=== PATIENT | female | born 1975 | race Caucasian/White ===

== ENCOUNTER 2016-04-06 01:01 | Emergency (ER) | payer OTHER ==
[2016-04-06] VITALS (7 sets, daily range): BP systolic 118–145; BP diastolic 66–91; PULSE 80–100; RESP 16–18; TEMP 97.6–98.1; O2SAT 95–100
[~2016-04-06] VITALS: Ht 160 cm; Wt 105.0 kg
[~2016-04-06 01:01] MED LIST: ASPI81CH CHEW; BACT800T5 PO; BUPR100CR PO; CLON0.1T PO; MIRT45TA PO; PERC5TAB12 PO; STRA100C PO; VIST25CA PO
[2016-04-06] MEDS ORDERED: HALOPERIDOL LACTATE 5 MG/ML AMP IM ONE (01:15)
[2016-04-06] MEDS ORDERED: LORazepam 2 MG/ML VIAL IV ONE (01:15)
--- NOTE | 2016-04-06 01:49 | PD ---
HPI Chief Complaint: Psychiatric Symptoms Time Seen by Provider: 01:30 Travel History International Travel<30 days: No Contact w/Intl Traveler<30days: No Traveled to known affect area: No History of Present Illness HPI The patient is 41 year old female who presents to the [facility] emergency department with a history of being brought in under a Rowell act due to reportedly trying to cut herself with a knife prior to arrival. The patient reports that she did not try to harm herself. 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 The patient reports that she does have a history of ADHD, post traumatic stress disorder, and depression. She reports that she is taking her medications as prescribed. She denies any suicidal or homicidal ideations. The patient on arrival to this facility became agitated and was attempting to spit at the staff and bite and kick the staff, therefore the patient was placed in leather restraints for her and the staff's safety. The patient was also given Ativan 2 mg IM, Haldol 5 mg IM. The patient denies any recent fevers, cough, congestion, neck pain, chest pain, shortness of breath, abdominal pain, vomiting, diarrhea, urinary symptoms, or neurologic symptoms. [facility] Past Medical History Narrative Medical The patient's past medical history is significant for ovarian cancer status post resection by Dr. Fuller in 2013, history of depression, posttraumatic stress disorder, attention deficit disorder, history of prior suicide attempts, history of seasonal allergies, polysubstance abuse, degenerative disc disease with chronic back pain, obesity. Asthma: No Anxiety: Yes Depression: Yes Cancer: Yes (OVARIAN CA) Chemotherapy: No COPD: No Diminished Hearing: No Endocrine: No Genitourinary: No Hepatitis: No Hiatal Hernia: No Hypertension: Yes Immune Disorder: No Musculoskeletal: No Neurologic: No Reproductive: No Respiratory: No Immunizations Current: No Thyroid Disease: No : 4 Para: 1 Miscarriage: 3 Ovarian Cysts: Yes Dilation and Curettage (D&C): Yes Past Surgical History Narrative Surgical The patient's past surgical history is significant for left oophorectomy, appendectomy, cholecystectomy, D&C. AICD: No Appendectomy: Yes Arteriovenous Shunt: No Body Medical Devices: TITANIUM IN RIGHT WRIST Cardiac Surgery: No Cholecystectomy: Yes Ear Surgery: No Endocrine Surgery: No Eye Surgery: No Genitourinary Surgery: No Gynecologic Surgery: Yes (OVERY CANCER) Hysterectomy: Yes Insulin Pump: No Joint Replacement: No Oral Surgery: No Pacemaker: No Thoracic Surgery: No Other Surgery: Yes (D & C, LAPAROSCOPY) Social History Alcohol Use: Yes (SOCIALLY) Tobacco Use: No (NEVER) Substance Use: No Allergies-Medications (Allergen,Severity, Reaction): Coded Allergies: Cortisone (Verified Allergy, Severe, PSYCHOSIS, 04/06/16) Pork (Verified Allergy, Severe, Anaphylaxis, 04/06/16) Tuna (Verified Allergy, Severe, Anaphylaxis, 04/06/16) Tylenol (Verified Allergy, Severe, LIVER PROBLEMS, 04/06/16) PT STATES SHE CAN TAKE IN SMALL DOSE NOT HIGH- LIVER PROBLEMS. 10/28/14 - PT DENIES ANY CURRENT ISSUES WITH LIVER/TYLENOL Penicillin (Verified Allergy, Intermediate, RASH, 04/06/16) *MDRO Multi-Drug Resistant Organism (Verified Allergy, Unknown, 04/06/16) MRSA 2014 Levaquin (Verified Adverse Reaction, Mild, MUSCLE CRAMPING, 04/06/16) muscle cramping Uncoded Allergies: fish (Allergy, Severe, mouth swells up, 02/15/16) . ham (Allergy, Severe, mouth swells up, 02/15/16) .herlinda marcia Reported Meds & Prescriptions Reported Meds & Active Scripts Active Active Prescriptions or Reported Medications Unobtainable Review of Systems Except as stated in HPI: all other systems reviewed are Neg General / Constitutional: No: Fever Eyes: No: Visual changes HENT: No: Headaches Cardiovascular: No: Chest Pain or Discomfort Respiratory: No: Shortness of Breath Gastrointestinal: No: Abdominal Pain Genitourinary: No: Dysuria Musculoskeletal: No: Pain Skin: No Rash Neurologic: No: Weakness Psychiatric: Positive: Anxiety, Depression, Suicidal Ideations, Mood Disorder, No: Disorder of Thought, Substance Abuse, Homicidal Ideation Endocrine: No: Polydipsia Hematologic/Lymphatic: No: Easy Bruising Physical Exam Narrative General: The patient is a well-developed well-nourished female in no acute distress, initially agitated on arrival attempting to hit and bite the staff. Head and Neck exam: Head is normocephalic atraumatic. Eyes: Pupils are equal round and reactive to light. Nose: Midline septum with pink mucous membranes Mouth: Dentition unremarkable. Moist mucus membranes. Posterior oropharynx is not erythematous. No tonsillar hypertrophy. Uvula midline. Airway patent. Neck: No palpable lymphadenopathy. No nuchal rigidity. No thyromegaly. Cardiovascular: Sinus tachycardia in the low 100s during agitation without murmurs, gallops, or rubs. No pulse deficit to the extremities and simultaneous auscultation and palpation of her radial artery. Lungs: Clear to auscultation bilaterally. No wheezes, rhonchi, or rales. Abdomen: Soft, without tenderness to palpation in all 4 quadrants of the abdomen. No guarding, rebound, or rigidity. Normal bowel sounds are audible. Extremities: No clubbing, cyanosis, or edema. No calf tenderness on palpation. Back: No spinous process tenderness to palpation. No costovertebral angle tenderness to palpation. Neurologic Exam: Grossly nonfocal. Skin Exam: No rash noted. Intact skin that is warm and dry. Data Data Last Documented VS Vital Signs Date Time Temp Pulse Resp B/P Pulse Ox O2 Delivery O2 Flow Rate FiO2 04/06/16 03:05 81 16 136/83 98 Room Air 04/06/16 01:56 98.1 Orders Haloperidol Inj (Haldol Inj) (04/06/16 01:15) Lorazepam Inj (Ativan Inj) (04/06/16 01:15) Complete Blood Count With Diff (04/06/16 01:32) Comprehensive Metabolic Panel (04/06/16 01:32) Urinalysis - C+S If Indicated (04/06/16 01:32) Drug Screen, Random Urine (04/06/16 01:32) Ed Urine Pregnancytest Poc (04/06/16 01:32) Alcohol (Ethanol) (04/06/16 01:32) Salicylates (Aspirin) (04/06/16 01:32) Tylenol (Acetaminophen) (04/06/16 01:32) Psych Screen (04/06/16 01:32) Labs Laboratory Tests Test 04/06/16 04/06/16 01:30 02:35 White Blood Count 10.2 TH/MM3 Red Blood Count 4.29 MIL/MM3 Hemoglobin 13.0 GM/DL Hematocrit 38.3 % Mean Corpuscular Volume 89.3 FL Mean Corpuscular Hemoglobin 30.3 PG Mean Corpuscular Hemoglobin 34.0 % Concent Red Cell Distribution Width 15.3 % Platelet Count 322 TH/MM3 Mean Platelet Volume 7.1 FL Neutrophils (%) (Auto) 73.8 % Lymphocytes (%) (Auto) 19.2 % Monocytes (%) (Auto) 5.6 % Eosinophils (%) (Auto) 0.6 % Basophils (%) (Auto) 0.8 % Neutrophils # (Auto) 7.5 TH/MM3 Lymphocytes # (Auto) 2.0 TH/MM3 Monocytes # (Auto) 0.6 TH/MM3 Eosinophils # (Auto) 0.1 TH/MM3 Basophils # (Auto) 0.1 TH/MM3 CBC Comment DIFF FINAL Differential Comment Urine Color LIGHT-YELLOW Urine Turbidity CLEAR Urine pH 5.5 Urine Specific [place] 1.004 Urine Protein NEG mg/dL Urine Glucose (UA) NEG mg/dL Urine Ketones NEG mg/dL Urine Occult Blood NEG Urine Nitrite NEG Urine Bilirubin NEG Urine Urobilinogen LESS THAN 2.0 MG/DL Urine Leukocyte Esterase NEG Urine WBC LESS THAN 1 /hpf Urine Squamous Epithelial <1 /hpf Cells Urine Hyaline Casts 1 /lpf Urine Mucus FEW /lpf Microscopic Urinalysis Comment CATH-CULT NOT IND Urine Opiates Screen NEG Urine Barbiturates Screen NEG Urine Amphetamines Screen NEG Urine Benzodiazepines Screen NEG Urine Cocaine Screen POS Urine Cannabinoids Screen NEG Sodium Level 138 MEQ/L Potassium Level 4.1 MEQ/L Chloride Level 106 MEQ/L Carbon Dioxide Level 17.6 MEQ/L Anion Gap 14 MEQ/L Blood Urea Nitrogen 9 MG/DL Creatinine 0.89 MG/DL Estimat Glomerular Filtration 70 ML/MIN Rate Random Glucose 96 MG/DL Calcium Level 8.8 MG/DL Total Bilirubin 0.3 MG/DL Aspartate Amino Transf 22 U/L (AST/SGOT) Alanine Aminotransferase 24 U/L (ALT/SGPT) Alkaline Phosphatase 91 U/L Total Protein 7.8 GM/DL Albumin 3.4 GM/DL Salicylates Level LESS THAN 1.7 MG/DL Acetaminophen Level LESS THAN 2.0 MCG/ML Ethyl Alcohol Level 133 MG/DL [facility] Medical Decision Making Medical Screen Exam Complete: Yes Emergency Medical Condition: Yes Medical Record Reviewed: Yes Differential Diagnosis Substance-induced mood disorder, versus exacerbation of depression with suicidal ideations, versus malingering Narrative Course During the course of the patients emergency department visit, the patients history, examination, and differential diagnosis were reviewed with the patient. The patient had IV access obtained and blood work sent for analysis. The patient was placed on a icu registered nurse with oximetry and blood pressure monitoring. The patient's vague record was reviewed. The patient was made aware that she is Rowell acted. The patient is aware that she will be waiting medical clearance and then evaluated by the psychiatric screener, followed by the psychiatrist. The patient was provided Haldol 5 mg IM, Ativan 2 mg IM. The patients laboratory studies were reviewed and remarkable for CBC is unremarkable, CMP is remarkable for CO2 of 17.6, GFR 70, urinalysis is unremarkable, alcohol level CXXXIII, acetaminophen less than 2, salicylate less than 1.7, urine drug screen positive for cocaine. The patient has been medically cleared for evaluation by the psychiatric screener and psychiatrist under a Rowell act. Diagnosis Primary Impression: Agitation Additional Impression: Depression with suicidal ideation Scripts Unable to Obtain Active Prescriptions or Reported Meds Apurva Cross MD Apr 06, 2016 01:49
[2016-04-06 02:01] LABS: AUTOMATED NEUTROPHIL # 7.5 TH/MM3 (1.8-7.7); BASOPHIL # 0.1 TH/MM3 (0-0.2); BASOPHIL % 0.8 % (0.0-2.0); EOSINOPHIL # 0.1 TH/MM3 (0-0.4); EOSINOPHIL % 0.6 % (0.0-4.0); HEMATOCRIT 38.3 % (35.0-46.0); HEMO FLAGS DIFF FINAL; LYMPH % 19.2 % (9.0-44.0); MEAN CELL VOLUME 89.3 FL (80.0-100.0); MEAN CORPUSCULAR HEMOGLOBIN 30.3 PG (27.0-34.0); MONO % 5.6 % (0.0-8.0); NEUT % 73.8 % (16.0-70.0); PLATELET COUNT 322 TH/MM3 (150-450); RED BLOOD COUNT 4.29 MIL/MM3 (4.00-5.30); RED CELL DISTRIBUTION WIDTH 15.3 % (11.6-17.2); WHITE BLOOD COUNT 10.2 TH/MM3 (4.0-11.0)
[2016-04-06 02:11] LABS: BLOOD, URINE NEG (NEG); GLUCOSE,URINE NEG (NEG); HYALINE CAST, URINE 1 /lpf (RARE); KETONE, URINE NEG (NEG); MUCUS URINE FEW /lpf (OCC); NITRITE,URINE NEG (NEG); PH, URINE 5.5 (5.0-8.5); SQUAMOUS EPITHELIAL CELL URINE <1 /hpf (0-5); URINE COLOR LIGHT-YELLOW (YELLW/STRAW)
[2016-04-06 02:12] LABS: COMMENT (UR) CATH-CULT NOT IND; CULTURE IF INDICATED CATH CULTURE NOT IND
[2016-04-06 02:13] LABS: AMPHETAMINE, URINE NEG (NEG); BARBITURATES, URINE NEG (NEG); COCAINE, URINE POS (NEG)
[2016-04-06 03:16] LABS: ALKALINE PHOSPHATASE 91 U/L (45-117); TOTAL BILIRUBIN ADULT 0.3 MG/DL (0.2-1.0)
[2016-04-06 03:18] LABS: ALT (GPT) 24 U/L (10-53); ANION GAP 14 MEQ/L (5-15); AST (GOT) 22 U/L (15-37); BICARBONATE 17.6 MEQ/L (21.0-32.0); BLOOD UREA NITROGEN 9 MG/DL (7-18); CHLORIDE 106 MEQ/L (98-107); GLOMERULAR FILTRATION RATE 70 ML/MIN (>89); SODIUM (NA) 138 MEQ/L (136-145)
[2016-04-06 03:19] LABS: ACETAMINOPHEN LESS THAN 2.0 MCG/ML (10.0-30.0); POTASSIUM 4.1 MEQ/L (3.5-5.1)
[2016-04-06] MEDS ORDERED: STRA100C PO (14:42)
[2016-04-06] MEDS ORDERED: VIST50CA PO (14:42)
[2016-04-06] MEDS ORDERED: BUPR150CR PO (14:42)
[2016-04-06] MEDS ORDERED: CLON0.2T PO (14:43)
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
[2016-05-17] MEDS ORDERED: CHLOTAB5 PO (15:36)
[2016-05-17] MEDS ORDERED: METR500T10 PO (16:03)
[2016-06-16] MEDS ORDERED: METR500T10 PO (15:00)
[2016-06-16] MEDS ORDERED: NORT10CA PO (15:00)
== END 2016-04-06 16:10 | disposition home or self-care (01) ==
LOC: NEPC 01:01 → NEPJ 16:10
DX: R45.1 Restlessness and agitation (principal); F41.8 Other specified anxiety disorders; F43.20 Adjustment disorder, unspecified; F10.10 Alcohol abuse, uncomplicated; R45.851 Suicidal ideations; F43.10 Post-traumatic stress disorder, unspecified; F90.9 Attention-deficit hyperactivity disorder, unspecified type; F19.10 Other psychoactive substance abuse, uncomplicated; I10 Essential (primary) hypertension; Z85.42 Personal history of malignant neoplasm of other parts of uterus; Z59.0 Homelessness
CPT/HCPCS: 80053; 80307; 80329; 81001; 84703; 85025; 96372; 96374; 99284; J1630; J2060; 80320; G0480

== ENCOUNTER → 2016-06-10 | Outpatient (CLI) | payer OTHER ==
[~2016-06-10] MED LIST changes: -ASPI81CH CHEW; -BACT800T5 PO; -BUPR100CR PO; +BUPR150CR PO; +CHLOTAB5 PO; -CLON0.1T PO; +CLON0.2T PO; +METR500T10 PO; -MIRT45TA PO; +NORT10CA PO; -PERC5TAB12 PO; -VIST25CA PO; +VIST50CA PO
[2016-06-10 10:52] LABS: AUTOMATED NEUTROPHIL # 4.4 TH/MM3 (1.8-7.7); BASOPHIL # 0.1 TH/MM3 (0-0.2); BASOPHIL % 1.1 % (0.0-2.0); EOSINOPHIL # 0.1 TH/MM3 (0-0.4); EOSINOPHIL % 1.6 % (0.0-4.0); HEMATOCRIT 37.5 % (35.0-46.0); HEMO FLAGS DIFF FINAL; LYMPH % 21.2 % (9.0-44.0); LYMPHOCYTE # 1.3 TH/MM3 (1.0-4.8); MEAN CELL VOLUME 88.6 FL (80.0-100.0); MEAN CORPUSCULAR HEMOGLOBIN 31.1 PG (27.0-34.0); MEAN CORPUSCULAR HGB CONC 35.1 % (32.0-36.0); MONO % 5.6 % (0.0-8.0); NEUT % 70.5 % (16.0-70.0); PLATELET COUNT 318 TH/MM3 (150-450); RED BLOOD COUNT 4.23 MIL/MM3 (4.00-5.30); WHITE BLOOD COUNT 6.3 TH/MM3 (4.0-11.0)
[2016-06-10 11:26] LABS: ALKALINE PHOSPHATASE 84 U/L (45-117); ALT (GPT) 19 U/L (10-53); ANION GAP 10 MEQ/L (5-15); AST (GOT) 13 U/L (15-37); BICARBONATE 25.2 MEQ/L (21.0-32.0); BLOOD UREA NITROGEN 10 MG/DL (7-18); CHLORIDE 102 MEQ/L (98-107); GLOMERULAR FILTRATION RATE 65 ML/MIN (>89); GLUCOSE,FASTING 89 MG/DL (74-99); HDL CHOLESTEROL 81.6 MG/DL (40.0-60.0); LDL CHOLESTEROL 137 MG/DL (0-99); POTASSIUM 4.1 MEQ/L (3.5-5.1); SODIUM (NA) 137 MEQ/L (136-145); TOTAL BILIRUBIN ADULT 0.5 MG/DL (0.2-1.0)
== END ==
LOC: CLAB 10:22
PROVIDERS: ATTEND Family Medicine
DX: G89.29 Other chronic pain (principal); F32.9 Major depressive disorder, single episode, unspecified; F43.10 Post-traumatic stress disorder, unspecified; T74.21XA Adult sexual abuse, confirmed, initial encounter; Z85.43 Personal history of malignant neoplasm of ovary
CPT/HCPCS: 36415; 80053; 80061; 84443; 85025; 86703

== ENCOUNTER 2017-01-10 17:43 | Emergency (ER) | payer OTHER ==
[~2017-01-10] VITALS: Ht 162.6 cm; Wt 100.0 kg
[2017-01-10 17:44] VITALS: BP 141/80; PULSE 89; RESP 20; TEMP 97.9; O2SAT 97
--- NOTE | 2017-01-10 17:54 | PD ---
Physical Exam Date Seen by Provider: Jan 10, 2017 Time Seen by Provider: 17:53 Narrative 41 yo female here for bug bite to the left arm. Happened a few hours ago. Painful and itchy. No SOB. no swelling of neck. Bite to the left hand. No signs of anaphylaxis in triage at this time. Vitals are stable in triage. Awaiting bed placement. Data Data Last Documented VS Vital Signs Date Time Temp Pulse Resp B/P (MAP) Pulse Ox O2 Delivery O2 Flow Rate FiO2 01/10/17 17:44 97.9 89 20 141/80 (100) 97 Room Air Orders Orders Ed Urine Pregnancytest Poc (01/10/17 17:52) MDM Medical Record Reviewed: Yes Supervised Visit with BARRY: No Scripts No Active Prescriptions or Reported Meds Juan Soria Jan 10, 2017 17:54
[2017-01-10] MEDS ORDERED: TRIAM.1%T TOPICAL (19:21)
[2017-01-10] MEDS ORDERED: CLAR10CA3 PO (19:21)
--- NOTE | 2017-01-10 19:27 | PD ---
HPI Chief Complaint: Bite or Sting Time Seen by Provider: 19:14 Travel History International Travel<30 days: No Contact w/Intl Traveler<30days: No Traveled to known affect area: No History of Present Illness HPI 41-year-old white female presents to emergency department for evaluation of a insect bite to her left forearm. This occurred approximately 3 hours prior to arrival. She states that she has allergic reactions to insect bites. She states that this is typical of her reactions. She was waiting at the bus stop and something stung her in the left forearm. Soon after that she developed a large area of erythema, burning, itching and pain. She denies any systemic symptoms such as shortness of breath, glossal edema or difficulty swallowing. No hives. She states that she typically comes to the ER to shot and then goes home. PFSH Past Medical History Asthma: No Anxiety: Yes Depression: Yes Cancer: Yes (OVARIAN CA) Chemotherapy: No COPD: No Diminished Hearing: No Endocrine: No Genitourinary: No Hepatitis: No Hiatal Hernia: No Hypertension: Yes Immune Disorder: No Musculoskeletal: No Neurologic: No Reproductive: No Respiratory: No Immunizations Current: No Thyroid Disease: No Tetanus Vaccination: < 5 Years ?: Unknown LMP: 12/2016 : 4 Para: 1 Miscarriage: 3 Ovarian Cysts: Yes Dilation and Curettage (D&C): Yes Past Surgical History AICD: No Appendectomy: Yes Arteriovenous Shunt: No Body Medical Devices: TITANIUM IN RIGHT WRIST Cardiac Surgery: No Cholecystectomy: Yes Ear Surgery: No Endocrine Surgery: No Eye Surgery: No Genitourinary Surgery: No Gynecologic Surgery: Yes (OVERY CANCER) Hysterectomy: Yes Insulin Pump: No Joint Replacement: No Oral Surgery: No Pacemaker: No Thoracic Surgery: No Other Surgery: Yes (D & C, LAPAROSCOPY) Social History Alcohol Use: Yes (SOCIALLY) Tobacco Use: No Substance Use: Yes Allergies-Medications (Allergen,Severity, Reaction): Coded Allergies: Fish Containing Products (Unverified Allergy, Severe, Anaphylaxis, ) Pork/Porcine Containing Products (Unverified Allergy, Severe, Anaphylaxis , 01/10/17) acetaminophen (Unverified Allergy, Severe, LIVER PROBLEMS, 01/10/17) PT STATES SHE CAN TAKE IN SMALL DOSE NOT HIGH- LIVER PROBLEMS. 10/28/14 - PT DENIES ANY CURRENT ISSUES WITH LIVER/TYLENOL cortisone (Unverified Allergy, Severe, PSYCHOSIS, 01/10/17) penicillin G (Unverified Allergy, Intermediate, RASH, 01/10/17) *MDRO Multi-Drug Resistant Organism (Verified Allergy, Unknown, 01/10/17) MRSA 2013 levofloxacin (Unverified Adverse Reaction, Mild, MUSCLE CRAMPING, 01/10/17 ) muscle cramping Uncoded Allergies: fish (Allergy, Severe, mouth swells up, 02/15/16) . ham (Allergy, Severe, mouth swells up, 02/15/16) .deli ham Reported Meds & Prescriptions Reported Meds & Active Scripts Active Claritin (Loratadine) 10 Mg Cap 10 Mg PO DAILY 10 Days Triamcinolone Topical (Triamcinolone Acetonide) 0.1 % Oint 1 Applic TOPICAL TID 7 Days Review of Systems Except as stated in HPI: all other systems reviewed are Neg HENT: No: Headaches, Sore Throat Cardiovascular: No: Chest Pain or Discomfort, Palpitations Respiratory: No: Cough, Shortness of Breath, Wheezing Gastrointestinal: No: Nausea, Vomiting Physical Exam Narrative GENERAL: Well-developed, well-nourished in no acute distress. Nontoxic appearing. HEAD: Normocephalic, atraumatic. EYES: Pupils equal round and reactive. Extraocular motions intact. No scleral icterus. No injection or drainage. ENT: TMs clear without erythema. The external auditory canals clear. Nose: clear . Posterior pharynx is pink and moist. No tonsillar edema or exudate. Uvula midline. Airway patent. NECK: Trachea midline.Supple, nontender, moves head freely. No central bony tenderness or spasm. CARDIOVASCULAR: Regular rate and rhythm without murmurs, gallops, or rubs. RESPIRATORY: Clear to auscultation. Breath sounds equal bilaterally. No wheezes , rales, or rhonchi. GASTROINTESTINAL: Abdomen soft, non-tender, nondistended. No hepato-splenomegaly , or palpable masses. No guarding. EXTREMITIES: No clubbing, cyanosis, or edema. No joint tenderness, effusion, or edema noted. Patient has a large area of erythema measuring 8 x 8 cm to her proximal left volar forearm. The patient is itching her arm during my interview. This appears to be a local reaction. No signs of infection. BACK: Nontender without deformity or crepitance. No flank tenderness. Data Data Last Documented VS Vital Signs Date Time Temp Pulse Resp B/P (MAP) Pulse Ox O2 Delivery O2 Flow Rate FiO2 01/10/17 17:44 97.9 89 20 141/80 (100) 97 Room Air Orders Orders Ed Urine Pregnancytest Poc (01/10/17 17:52) Diphenhydramine Inj (Benadryl Inj) (01/10/17 19:30) Ice/Cold Pack (01/10/17 19:18) Ed Discharge Order (01/10/17 19:21) MDM Medical Decision Making Medical Screen Exam Complete: Yes Emergency Medical Condition: Yes Medical Record Reviewed: Yes Differential Diagnosis MDM: High Differential diagnoses: Abscess, folliculitis, cellulitis, lymphangitis, abrasion, contact dermatitis, allergic reaction, insect bite Narrative Course Patient's given Benadryl 50 mg IM. This insect bite local reaction Diagnosis Primary Impression: insect bite with local reaction Patient Instructions: General Instructions Additional Instructions: Rest. Elevation. Ice. 50 mg of Benadryl every 4 hours as needed. Claritin. Triamcinolone cream. Follow-up with a medical doctor in the next 3-7 days. Return to the ER if any problems. Med/Other Pt SpecificInfo: Prescription(s) given Scripts Loratadine (Claritin) 10 Mg Cap 10 MG PO DAILY for Allergy Management for 10 Days, #10 CAP 0 Refills Prov: Mukesh Mckinney MD 01/10/17 Triamcinolone Topical (Triamcinolone Topical) 0.1 % Oint 1 APPLIC TOPICAL TID for Inflammation for 7 Days, GM 0 Refills Prov: Mukesh Mckinney MD 01/10/17 Disposition: 01 DISCHARGE HOME Condition: Stable Robby Zhu Jan 10, 2017 19:27
[2017-01-10] MEDS ORDERED: diphenhydrAMINE HCL 50 MG/ML VIAL IM ONE (19:30)
== END 2017-01-10 19:39 | disposition home or self-care (01) ==
LOC: NEPK 17:43
DX: S50.862A Insect bite (nonvenomous) of left forearm, initial encounter (principal); I10 Essential (primary) hypertension; Z86.59 Personal history of other mental and behavioral disorders; Z85.43 Personal history of malignant neoplasm of ovary; W57.XXXA Bitten or stung by nonvenomous insect and other nonvenomous arthropods, initial encounter; Y92.521 Bus station as the place of occurrence of the external cause
CPT/HCPCS: 84703; 96372; 99284; J1200

== ENCOUNTER 2017-02-05 00:52 | Emergency (ER) | payer SELFPAY ==
[~2017-02-05] VITALS: Ht 162.6 cm; Wt 100.0 kg
[~2017-02-05 00:52] MED LIST changes: -BUPR150CR PO; -CHLOTAB5 PO; +CLAR10CA3 PO; -CLON0.2T PO; -METR500T10 PO; -NORT10CA PO; -STRA100C PO; +TRIAM.1%T TOPICAL; -VIST50CA PO
[2017-02-05 00:53] VITALS: BP 180/103; PULSE 82; RESP 16; TEMP 97.6; O2SAT 98
[2017-02-05] MEDS ORDERED: ALUMINUM/MAGNESIUM/SIMETH 30 ML CUP PO ONE (02:15)
[2017-02-05] MEDS ORDERED: LIDOCAINE VISCOUS 2% SOLN 15 ML UDC SWISH-SWAL ONE (02:15)
[2017-02-05 02:43] LABS: BACTERIA, URINE RARE /hpf; BLOOD, URINE NEG (NEG); COMMENT (UR) CULT NOT INDICATED; CULTURE IF INDICATED CULT NOT INDICATED; GLUCOSE,URINE NEG (NEG); KETONE, URINE NEG (NEG); NITRITE,URINE NEG (NEG); PH, URINE 5.5 (5.0-8.5); SQUAMOUS EPITHELIAL CELL URINE <1 /hpf (0-5); URINE COLOR LIGHT-YELLOW (YELLW/STRAW)
[2017-02-05] MEDS ORDERED: KETOROLAC TROMETHAMINE 60 MG/2 ML (IM) VIAL IM ONE (04:30)
--- NOTE | 2017-02-05 04:47 | PD ---
HPI Chief Complaint: Flank/Kidney Pain Time Seen by Provider: 01:46 Travel History International Travel<30 days: No Contact w/Intl Traveler<30days: No Traveled to known affect area: No History of Present Illness HPI pt has RUQ pain and it started in the night comes to the ER in early AM monday night , pt has had her GB out an d appendix out and ovarian CA removal of left ovary PFSH Past Medical History Asthma: No Anxiety: Yes Depression: Yes Cancer: Yes (OVARIAN CA) Chemotherapy: No COPD: No Diminished Hearing: No Endocrine: No Genitourinary: No Hepatitis: No Hiatal Hernia: No Hypertension: Yes Immune Disorder: No Musculoskeletal: No Neurologic: No Reproductive: No Respiratory: No Immunizations Current: No Thyroid Disease: No ?: Not LMP: 01/24/17 : 4 Para: 1 Miscarriage: 3 Ovarian Cysts: Yes Dilation and Curettage (D&C): Yes Past Surgical History AICD: No Appendectomy: Yes Arteriovenous Shunt: No Body Medical Devices: TITANIUM IN RIGHT WRIST Cardiac Surgery: No Cholecystectomy: Yes Ear Surgery: No Endocrine Surgery: No Eye Surgery: No Genitourinary Surgery: No Gynecologic Surgery: Yes (OVERY CANCER) Hysterectomy: Yes Insulin Pump: No Joint Replacement: No Oral Surgery: No Pacemaker: No Thoracic Surgery: No Other Surgery: Yes (D & C, LAPAROSCOPY) Social History Alcohol Use: Yes (SOCIALLY) Tobacco Use: No Substance Use: No Allergies-Medications (Allergen,Severity, Reaction): Coded Allergies: Fish Containing Products (Unverified Allergy, Severe, Anaphylaxis, ) Pork/Porcine Containing Products (Unverified Allergy, Severe, Anaphylaxis , 01/10/17) acetaminophen (Unverified Allergy, Severe, LIVER PROBLEMS, 01/10/17) PT STATES SHE CAN TAKE IN SMALL DOSE NOT HIGH- LIVER PROBLEMS. 10/28/14 - PT DENIES ANY CURRENT ISSUES WITH LIVER/TYLENOL cortisone (Unverified Allergy, Severe, PSYCHOSIS, 01/10/17) penicillin G (Unverified Allergy, Intermediate, RASH, 01/10/17) *MDRO Multi-Drug Resistant Organism (Verified Allergy, Unknown, 01/10/17) MRSA 2014 levofloxacin (Unverified Adverse Reaction, Mild, MUSCLE CRAMPING, 01/10/17 ) muscle cramping Uncoded Allergies: fish (Allergy, Severe, mouth swells up, 02/15/16) . ham (Allergy, Severe, mouth swells up, 02/15/16) .herlinda kennedy Reported Meds & Prescriptions Reported Meds & Active Scripts Active Zofran Odt (Ondansetron Odt) 4 Mg Tab 4 Mg SL Q8HR PRN Protonix (Pantoprazole Sodium) 40 Mg Tab 40 Mg PO DAILY Claritin (Loratadine) 10 Mg Cap 10 Mg PO DAILY 10 Days Triamcinolone Topical (Triamcinolone Acetonide) 0.1 % Oint 1 Applic TOPICAL TID 7 Days Physical Exam Narrative GENERAL: non toxic Aox3 SKIN: Warm and dry. HEAD: Atraumatic. Normocephalic. EYES: Pupils equal and round. No scleral icterus. No injection or drainage. ENT: No nasal bleeding or discharge. Mucous membranes pink and moist. NECK: Trachea midline. No JVD. CARDIOVASCULAR: Regular rate and rhythm. RESPIRATORY: No accessory muscle use. Clear to auscultation. Breath sounds equal bilaterally. GASTROINTESTINAL: Abdomen soft, RUQ tenderness nondistended. Hepatic and splenic margins not palpable. mildly obese MUSCULOSKELETAL: Extremities without clubbing, cyanosis, or edema. No obvious deformities. NEUROLOGICAL: Awake and alert. No obvious cranial nerve deficits. Motor grossly within normal limits. Five out of 5 muscle strength in the arms and legs. Normal speech. PSYCHIATRIC: Appropriate mood and affect; insight and judgment normal. Data Data Last Documented VS Vital Signs Date Time Temp Pulse Resp B/P (MAP) Pulse Ox O2 Delivery O2 Flow Rate FiO2 02/05/17 00:53 97.6 82 16 180/103 (128) 98 Room Air Orders Orders Urinalysis - C+S If Indicated (02/05/17 00:59) Lidocaine 2% Viscous (Xylocaine 2% Visco (02/05/17 02:15) Al-Mag Hy-Si 40-40-4 Mg/Ml Liq (Mag-Al P (02/05/17 02:15) Ketorolac Inj (Toradol Inj) (02/05/17 04:30) Ed Discharge Order (02/05/17 06:24) Labs Laboratory Tests Test 02/05/17 02:00 Urine Color LIGHT-YELLOW Urine Turbidity CLEAR Urine pH 5.5 Urine Specific [place] 1.011 Urine Protein NEG mg/dL Urine Glucose (UA) NEG mg/dL Urine Ketones NEG mg/dL Urine Occult Blood NEG Urine Nitrite NEG Urine Bilirubin NEG Urine Urobilinogen LESS THAN 2.0 MG/DL Urine Leukocyte Esterase NEG Urine WBC LESS THAN 1 /hpf Urine Squamous Epithelial Cells <1 /hpf Urine Bacteria RARE /hpf Microscopic Urinalysis Comment CULT NOT INDICATED MDM Medical Decision Making Medical Screen Exam Complete: Yes Emergency Medical Condition: Yes Differential Diagnosis gastritis vs retained Gallstone vs abdo pain NOS Narrative Course GI cocktail effected pain reduced then toradol and slept without pain , 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 no emergency further eval needed at this time has no Aappendix no gallbladder both surgically removed Diagnosis Primary Impression: Abdominal pain, unspecified site Patient Instructions: Abdominal Pain (ED), General Instructions Scripts Ondansetron Odt (Zofran Odt) 4 Mg Tab 4 MG SL Q8HR Y for Nausea/Vomiting, #10 TAB 0 Refills Prov: Wade Marina MD 02/05/17 Pantoprazole (Protonix) 40 Mg Tab 40 MG PO DAILY for Reflux, #30 TAB 0 Refills Prov: Wade Marina MD 02/05/17 Disposition: 01 DISCHARGE HOME Condition: Good Wade Marina MD Feb 05, 2017 04:47
[2017-02-05] MEDS ORDERED: PROT40TA PO (06:32)
[2017-02-05] MEDS ORDERED: ZOFR4TAB3 SL (06:32)
== END 2017-02-05 07:02 | disposition home or self-care (01) ==
LOC: NEPC 00:52
DX: R10.11 Right upper quadrant pain (principal); F41.9 Anxiety disorder, unspecified; F32.9 Major depressive disorder, single episode, unspecified; I10 Essential (primary) hypertension; Z79.899 Other long term (current) drug therapy
CPT/HCPCS: 81001; 96372; 99284; J1885

== ENCOUNTER 2017-02-13 05:00 | Emergency (ER) | payer SELFPAY ==
[~2017-02-13] VITALS: Ht 162.6 cm; Wt 105.0 kg
[~2017-02-13 05:00] MED LIST changes: +PROT40TA PO; +ZOFR4TAB3 SL
[2017-02-13 05:03] VITALS: BP 125/73; PULSE 94; RESP 16; TEMP 97.6; O2SAT 99
--- NOTE | 2017-02-13 05:25 | PD ---
HPI Chief Complaint: Hip Injury Time Seen by Provider: 05:12 Travel History International Travel<30 days: No Contact w/Intl Traveler<30days: No Traveled to known affect area: No History of Present Illness HPI Patient comes in with multiple complaints. Patient states over the past 2 days she has been having right knee pain over the medial aspect that is burning like in nature without radiation. Patient denies any known injury. Pain is worse with walking and certain movement. Patient denies anything making it better patient also has concerns over left low back pain radiates all the way down to her foot. Patient denies any injury, loss change in bowel or bladder, fevers, IV drug use, or trauma. Patient denies anything like this in the past. Denies anything making it better or worse. Patient reports this has been going on for approximately a week. Patient denies doing anything for this prior to coming to the emergency department. PFSH Past Medical History Asthma: No Anxiety: Yes Depression: Yes Cancer: Yes (OVARIAN CA) Chemotherapy: No COPD: No Diminished Hearing: No Endocrine: No Genitourinary: No Hepatitis: No Hiatal Hernia: No Hypertension: Yes Immune Disorder: No Musculoskeletal: No Neurologic: No Reproductive: No Respiratory: No Immunizations Current: No Thyroid Disease: No Tetanus Vaccination: < 5 Years Influenza Vaccination: No ?: Not LMP: 02/01/2017 : 4 Para: 1 Miscarriage: 3 Ovarian Cysts: Yes Dilation and Curettage (D&C): Yes Past Surgical History AICD: No Appendectomy: Yes Arteriovenous Shunt: No Body Medical Devices: TITANIUM IN RIGHT WRIST Cardiac Surgery: No Cholecystectomy: Yes Ear Surgery: No Endocrine Surgery: No Eye Surgery: No Genitourinary Surgery: No Gynecologic Surgery: Yes (OVERY CANCER) Hysterectomy: Yes Insulin Pump: No Joint Replacement: No Oral Surgery: No Pacemaker: No Thoracic Surgery: No Other Surgery: Yes (D & C, LAPAROSCOPY) Social History Alcohol Use: Yes (SOCIALLY) Tobacco Use: No Substance Use: No Allergies-Medications (Allergen,Severity, Reaction): Coded Allergies: Fish Containing Products (Unverified Allergy, Severe, Anaphylaxis, ) Pork/Porcine Containing Products (Unverified Allergy, Severe, Anaphylaxis , 02/13/17) acetaminophen (Unverified Allergy, Severe, LIVER PROBLEMS, 02/13/17) PT STATES SHE CAN TAKE IN SMALL DOSE NOT HIGH- LIVER PROBLEMS. 10/28/14 - PT DENIES ANY CURRENT ISSUES WITH LIVER/TYLENOL cortisone (Unverified Allergy, Severe, PSYCHOSIS, 02/13/17) penicillin G (Unverified Allergy, Intermediate, RASH, 02/13/17) *MDRO Multi-Drug Resistant Organism (Verified Allergy, Unknown, 02/13/17) MRSA 2013 levofloxacin (Unverified Adverse Reaction, Mild, MUSCLE CRAMPING, 02/13/17 ) muscle cramping Uncoded Allergies: fish (Allergy, Severe, mouth swells up, 02/15/16) . ham (Allergy, Severe, mouth swells up, 02/15/16) .deli ham Reported Meds & Prescriptions Reported Meds & Active Scripts Active Diclofenac Sodium DR (Diclofenac Sodium) 75 Mg Tabdr 75 Mg PO Q12HR PRN Zofran Odt (Ondansetron Odt) 4 Mg Tab 4 Mg SL Q8HR PRN Protonix (Pantoprazole Sodium) 40 Mg Tab 40 Mg PO DAILY Claritin (Loratadine) 10 Mg Cap 10 Mg PO DAILY 10 Days Triamcinolone Topical (Triamcinolone Acetonide) 0.1 % Oint 1 Applic TOPICAL TID 7 Days Review of Systems Except as stated in HPI: all other systems reviewed are Neg Physical Exam Narrative GENERAL: Well-developed, overly nourished, in no acute distress, and non-ill appearing. SKIN: Focused skin assessment warm and dry. HEAD: Atraumatic. Normocephalic. EYES: Pupils equal and round. EOMI. No scleral icterus. No injection or drainage. ENT: No nasal bleeding or discharge. Mucous membranes pink and moist. NECK: Trachea midline. Supple. No nuclear rigidity. RESPIRATORY: No accessory muscle use. No respiratory distress. MUSCULOSKELETAL: No obvious deformities. No clubbing. No cyanosis. No edema. Full range of motion. Hip: FROM and equal BL with passive flexion, extension, Abduction, Adduction, and internal/external rotation. Pulses equal BL distal to injury. Capillary refill less than 2 seconds distal to injury and equal BL. FROM distal to injury and equal BL. Strength distal to injury equal BL. NV intact distal to injury and equal BL. Plantar flexion and dorsal flexion equal BL. Dorsal pulses equal BL. Sensation equal BL 1st web space. Knee: Negative patellar apprehension, varus and valgus maneuvers, anterior draw test, and Chris test. Pulses equal BL distal to injury. Capillary refill less than 2 seconds distal to injury and equal BL. FROM distal to injury and equal BL. Strength distal to injury equal BL. NV intact distal to injury. Dorsal pulses equal BL. Sensation equal BL 1st web space. There is no tenderness or crepitus throughout the lumbar spine midline. There is no paravertebral tenderness. NEUROLOGICAL: Awake and alert. No obvious cranial nerve deficits. Motor grossly within normal limits. Normal speech. PSYCHIATRIC: Appropriate mood and affect; insight and judgment normal. Data Data Last Documented VS Vital Signs Date Time Temp Pulse Resp B/P (MAP) Pulse Ox O2 Delivery O2 Flow Rate FiO2 02/13/17 05:27 02/13/17 05:03 97.6 94 16 99 Orders Orders Ketorolac Inj (Toradol Inj) (02/13/17 05:30) Splint Or Brace Apply/Monitor (02/13/17 05:18) Ed Discharge Order (02/13/17 05:25) Diphenhydramine (Benadryl) (02/13/17 06:00) Famotidine (Pepcid) (02/13/17 06:00) MDM Medical Decision Making Medical Screen Exam Complete: Yes Emergency Medical Condition: Yes Differential Diagnosis Fracture, strain, sciatica, dislocation, other Narrative Course Prior to discharge patient began complaining of itching of right upper extremity. Patient has had Toradol in the past with no allergic reactions. Toradol injection was given thigh and not the upper extremity. It appears the Patient is intentionally scratching at her skin causing red lopez. Does not appear consistent with hives or allergic reaction. There is no respiratory distress. We'll give patient a dose of by mouth Benadryl and by mouth Pepcid will monitor and then discharge. There is no clinical evidence for fracture. There is no clinical evidence to suspect bony injury by exam. No obvious ligamental injury or internal derangement is noted at this time. The distal extremity appears neurovascularly intact, without evidence of neurovascular injury nor compartment syndrome. Tendon exam also was intact. The effected limb was splinted. The patient was discharged on pain medication and given warnings for vascular compromise. The patient is to follow up with Orthopedics. The patient agrees with plan The patient presented also complaining of back pain with radiation down leg. There was no history of recent fall or trauma. There was no evidence to support genitourinary etiology. There is also no evidence to suggest vascular pathology such as AAA dissection. No fevers or other evidence to suspect infectious processes, abscess, osteomyelitis etc. The patients neurological exam is normal with normal motor and sensory. There is no saddle paresthesias reported and no bowel or bladder incontinence or retention. I suspect the pain is mechanical in nature with sciatica. Clinical suspicion, plan of care and management was discussed with the patient. The patient was instructed to follow up with their health care provider. The patient was also instructed to return if the pain worsened, changed, or developed weakness or bowel or bladder trouble. The patient agreed with plan. Patient in no obvious distress upon re-evaluation. Patient was asked if they wanted to speak to my attending, which the patient did not wish to do at this time. Any questions/concerns in reference to patient diagnosis/condition discussed and clarified prior to patient's discharge. Reinforced sheer importance of close follow up with patient's primary physician or primary care clinic. Instructed patient to return to ED immediately, if symptoms return/ worsen. Patient showed understanding of above instructions. Further instructions and recommendations were detailed in discharge paperwork. Patient ambulated without difficulty out of ED at discharge. Diagnosis Primary Impression: Right knee pain Qualified Codes: M25.561 - Pain in right knee Additional Impression: Sciatica Qualified Codes: M54.31 - Sciatica, right side Referrals: [facility] Patient Instructions: Crutch Instructions (ED), General Instructions, Knee Pain (ED), Sciatica (ED) Additional Instructions: Follow-up with your primary care physician and/or orthopedics this week for reevaluation. Take all medication as prescribed. Wear Efren wrap as needed for comfort. Use crutches as needed for support. Apply ice to affected area 20 minutes prior as needed for pain. Return to the emergency department if symptoms get worse. Med/Other Pt SpecificInfo: Prescription(s) given Scripts Diclofenac Sodium DR (Diclofenac Sodium DR) 75 Mg Tabdr 75 MG PO Q12HR Y for PAIN SCALE 1 TO 10, #14 TAB 0 Refills Prov: Judy Loyola MD 02/13/17 Disposition: 01 DISCHARGE HOME Condition: Stable Timbo Menendez Feb 13, 2017 05:25
[2017-02-13] MEDS ORDERED: DICL75TA PO (05:26)
[2017-02-13] MEDS ORDERED: KETOROLAC TROMETHAMINE 60 MG/2 ML (IM) VIAL IM ONE (05:30)
[2017-02-13] MEDS ORDERED: diphenhydrAMINE HCL 25 MG CAP PO ONE (06:00)
[2017-02-13] MEDS ORDERED: FAMOTIDINE 20 MG TAB PO ONE (06:00)
== END 2017-02-13 06:33 | disposition home or self-care (01) ==
LOC: NEPD 05:00
DX: M25.561 Pain in right knee (principal); M54.31 Sciatica, right side; I10 Essential (primary) hypertension
CPT/HCPCS: 96372; 99284; E0113; J1885

== ENCOUNTER 2017-02-23 12:41 | Observation (INO) | payer SELFPAY ==
[~2017-02-23] VITALS: Ht 175.3 cm; Wt 90.0 kg
[~2017-02-23 12:41] MED LIST changes: +DICL75TA PO
[2017-02-23 12:43] VITALS: BP 132/73; PULSE 88; RESP 22; TEMP 97.8; O2SAT 98
[2017-02-23] MEDS ORDERED: BENA2CRE2 TOPICAL (12:56)
[2017-02-23] MEDS ORDERED: SODIUM CHLORID 0.9% 500 ML INJ 500 ML IV ONE (13:00)
--- NOTE | 2017-02-23 13:06 | PD ---
HPI Chief Complaint: Chest Pain Time Seen by Provider: 12:59 Travel History International Travel<30 days: No Contact w/Intl Traveler<30days: No Traveled to known affect area: No History of Present Illness HPI Patient is a 41-year-old female presenting to the emergency department evaluation of chest pain. Patient states the pain started a few hours prior to arrival. She reports it radiates across her anterior chest wall to her left arm. She states that she has felt dizzy and short of breath. She also reports a cough, nasal congestion, dull headache. She reports the pain in her chest as pressure like and is 6 out of 10. There are no alleviating or exacerbating factors. Patient states that she just does not feel well, she denies any nausea , vomiting, abdominal pain, fevers but feels chilled. Patient denies any significant past medical history, she denies any early family history of heart disease. She is not a smoker and does not use any drugs. PFSH Past Medical History Asthma: No Anxiety: Yes Depression: Yes Cancer: Yes (OVARIAN CA) Chemotherapy: No COPD: No Diminished Hearing: No Endocrine: No Gastrointestinal Disorders: No Genitourinary: No Hepatitis: No Hiatal Hernia: No Hypertension: No Immune Disorder: No Implanted Vascular Access Dvce: No Musculoskeletal: No Neurologic: No Reproductive: No Respiratory: No Immunizations Current: No Thyroid Disease: No ?: Not : 4 Para: 1 Miscarriage: 3 Ovarian Cysts: Yes Dilation and Curettage (D&C): Yes Past Surgical History AICD: No Appendectomy: Yes Arteriovenous Shunt: No Body Medical Devices: TITANIUM IN RIGHT WRIST Cardiac Surgery: No Cholecystectomy: Yes Ear Surgery: No Endocrine Surgery: No Eye Surgery: No Genitourinary Surgery: No Gynecologic Surgery: Yes (right oophorectomy) Insulin Pump: No Joint Replacement: No Neurologic Surgery: No Oral Surgery: No Pacemaker: No Thoracic Surgery: No Family History Family History: Negative Social History Alcohol Use: Yes (SOCIALLY) Tobacco Use: No Substance Use: No Allergies-Medications (Allergen,Severity, Reaction): Coded Allergies: Fish Containing Products (Unverified Allergy, Severe, Anaphylaxis, ) Pork/Porcine Containing Products (Unverified Allergy, Severe, Anaphylaxis , 02/13/17) cortisone (Unverified Allergy, Severe, PSYCHOSIS, 02/13/17) penicillin G (Unverified Allergy, Intermediate, RASH, 02/13/17) *MDRO Multi-Drug Resistant Organism (Verified Allergy, Unknown, 02/13/17) MRSA 2013 levofloxacin (Unverified Adverse Reaction, Mild, MUSCLE CRAMPING, 02/13/17 ) muscle cramping Uncoded Allergies: fish (Allergy, Severe, mouth swells up, 02/15/16) . ham (Allergy, Severe, mouth swells up, 02/15/16) .herlinda ham Reported Meds & Prescriptions Reported Meds & Active Scripts Active Reported Benadryl Extra Strength Topical (Diphenhydramine-Zinc Topical) 2-0.1% Cream 1 Applic TOPICAL QID PRN Review of Systems Except as stated in HPI: all other systems reviewed are Neg General / Constitutional: Positive: Chills, No: Fever HENT: Positive: Headaches, No: Lightheadedness Cardiovascular: Positive: Chest Pain or Discomfort, Dyspnea on exertion Respiratory: Positive: Cough, Shortness of Breath, Pleuritic Pain Gastrointestinal: No: Nausea, Vomiting, Abdominal Pain Genitourinary: No: Dysuria Neurologic: Positive: Dizziness, Headache, No: Weakness, Focal Abnormalities, Change in Mentation Physical Exam Narrative GENERAL: Overweight, well-developed, alert female. Resting comfortably in no acute distress. SKIN: Warm and dry. HEAD: Atraumatic. Normocephalic. EYES: Pupils equal and round. No scleral icterus. No injection or drainage. ENT: No nasal bleeding or discharge. Mucous membranes pink and moist. NECK: Trachea midline. No JVD. CARDIOVASCULAR: Regular rate and rhythm. RESPIRATORY: No accessory muscle use. Clear to auscultation. Breath sounds equal bilaterally. GASTROINTESTINAL: Abdomen soft, non-tender, nondistended. Hepatic and splenic margins not palpable. Positive bowel sounds, no rebound, no guarding. MUSCULOSKELETAL: Extremities without clubbing, cyanosis, or edema. No obvious deformities. Tenderness to palpation on anterior chest wall. NEUROLOGICAL: Awake and alert. No obvious cranial nerve deficits. Motor grossly within normal limits. Five out of 5 muscle strength in the arms and legs. Normal speech. PSYCHIATRIC: Appropriate mood and affect; insight and judgment normal. Data Data Last Documented VS Vital Signs Date Time Temp Pulse Resp B/P (MAP) Pulse Ox O2 Delivery O2 Flow Rate FiO2 02/23/17 13:49 78 115/67 (83) 122/70 (87) 02/23/17 13:38 18 99 Room Air 02/23/17 12:43 97.8 Orders Orders Electrocardiogram (02/23/17 13:00) B-Type Natriuretic Peptide (02/23/17 13:00) Ckmb (Isoenzyme) Profile (02/23/17 13:00) Complete Blood Count With Diff (02/23/17 13:00) Comprehensive Metabolic Panel (02/23/17 13:00) Magnesium (Mg) (02/23/17 13:00) Prothrombin Time / Inr (Pt) (02/23/17 13:00) Act Partial Throm Time (Ptt) (02/23/17 13:00) Troponin I (02/23/17:00) Lipase (02/23/17 13:00) Chest, Single Ap (02/23/17 13:00) Ecg Monitoring (02/23/17 13:00) Bilateral Bp Monitoring (02/23/17 13:00) Iv Access Insert/Monitor (02/23/17 13:00) Oximetry (02/23/17 13:00) Oxygen Administration (02/23/17 13:00) Sodium Chloride 0.9% Flush (Ns Flush) (02/23/17 13:00) Sodium Chlorid 0.9% 500 Ml Inj (Ns 500 M (02/23/17 13:00) Urinalysis - C+S If Indicated (02/23/17 13:00) Ed Urine Pregnancytest Poc (02/23/17 13:00) Drug Screen, Random Urine (02/23/17 13:11) Ct Brain W/O Iv Contrast(Rout) (02/23/17 ) CKMB (02/23/17 13:03) CKMB% (02/23/17 13:03) Admit Order (Ed Use Only) (02/23/17 15:15) Labs Laboratory Tests Test 02/23/17 13:03 02/23/17 13:46 White Blood Count 6.7 TH/MM3 Red Blood Count 3.81 MIL/MM3 Hemoglobin 11.7 GM/DL Hematocrit 35.2 % Mean Corpuscular Volume 92.5 FL Mean Corpuscular Hemoglobin 30.6 PG Mean Corpuscular Hemoglobin Concent 33.1 % Red Cell Distribution Width 14.7 % Platelet Count 290 TH/MM3 Mean Platelet Volume 7.3 FL Neutrophils (%) (Auto) 66.3 % Lymphocytes (%) (Auto) 21.9 % Monocytes (%) (Auto) 7.4 % Eosinophils (%) (Auto) 3.2 % Basophils (%) (Auto) 1.2 % Neutrophils # (Auto) 4.4 TH/MM3 Lymphocytes # (Auto) 1.5 TH/MM3 Monocytes # (Auto) 0.5 TH/MM3 Eosinophils # (Auto) 0.2 TH/MM3 Basophils # (Auto) 0.1 TH/MM3 CBC Comment DIFF FINAL Differential Comment Prothrombin Time 11.1 SEC Prothromb Time International Ratio 1.0 RATIO Activated Partial Thromboplast Time 26.0 SEC Blood Urea Nitrogen 6 MG/DL Creatinine 0.92 MG/DL Random Glucose 93 MG/DL Total Protein 7.8 GM/DL Albumin 3.5 GM/DL Calcium Level 8.9 MG/DL Magnesium Level 1.9 MG/DL Alkaline Phosphatase 72 U/L Aspartate Amino Transf (AST/SGOT) 25 U/L Alanine Aminotransferase (ALT/SGPT) 26 U/L Total Bilirubin 0.2 MG/DL Sodium Level 139 MEQ/L Potassium Level 3.5 MEQ/L Chloride Level 107 MEQ/L Carbon Dioxide Level 24.2 MEQ/L Anion Gap 8 MEQ/L Estimat Glomerular Filtration Rate 67 ML/MIN Total Creatine Kinase 140 U/L Creatine Kinase MB 1.2 NG/ML Troponin I LESS THAN 0.02 NG/ML B-Type Natriuretic Peptide 17 PG/ML Lipase 117 U/L Urine Color COLORLESS Urine Turbidity CLEAR Urine pH 5.0 Urine Specific [place] 1.002 Urine Protein NEG mg/dL Urine Glucose (UA) NEG mg/dL Urine Ketones NEG mg/dL Urine Occult Blood NEG Urine Nitrite NEG Urine Bilirubin NEG Urine Urobilinogen LESS THAN 2.0 MG/DL Urine Leukocyte Esterase NEG Urine RBC LESS THAN 1 /hpf Microscopic Urinalysis Comment CULT NOT INDICATED Urine Opiates Screen NEG Urine Barbiturates Screen NEG Urine Amphetamines Screen NEG Urine Benzodiazepines Screen NEG Urine Cocaine Screen POS Urine Cannabinoids Screen NEG MDM Medical Decision Making Medical Screen Exam Complete: Yes Emergency Medical Condition: Yes Interpretation(s) Last Impressions Chest X-Ray 02/23/17 1300 Signed Impressions: Service Date/Time: , February 23, 2017 13:12 - CONCLUSION: The lungs are clear. Huey Sher MD Head CT 02/23/17 0000 Signed Impressions: Service Date/Time: February 14:21 - CONCLUSION: Negative noncontrast CT brain. Huey Sher MD Laboratory Tests Test 02/23/17 13:03 02/23/17 13:46 White Blood Count 6.7 TH/MM3 Red Blood Count 3.81 MIL/MM3 Hemoglobin 11.7 GM/DL Hematocrit 35.2 % Mean Corpuscular Volume 92.5 FL Mean Corpuscular Hemoglobin 30.6 PG Mean Corpuscular Hemoglobin Concent 33.1 % Red Cell Distribution Width 14.7 % Platelet Count 290 TH/MM3 Mean Platelet Volume 7.3 FL Neutrophils (%) (Auto) 66.3 % Lymphocytes (%) (Auto) 21.9 % Monocytes (%) (Auto) 7.4 % Eosinophils (%) (Auto) 3.2 % Basophils (%) (Auto) 1.2 % Neutrophils # (Auto) 4.4 TH/MM3 Lymphocytes # (Auto) 1.5 TH/MM3 Monocytes # (Auto) 0.5 TH/MM3 Eosinophils # (Auto) 0.2 TH/MM3 Basophils # (Auto) 0.1 TH/MM3 CBC Comment DIFF FINAL Differential Comment Prothrombin Time 11.1 SEC Prothromb Time International Ratio 1.0 RATIO Activated Partial Thromboplast Time 26.0 SEC Blood Urea Nitrogen 6 MG/DL Creatinine 0.92 MG/DL Random Glucose 93 MG/DL Total Protein 7.8 GM/DL Albumin 3.5 GM/DL Calcium Level 8.9 MG/DL Magnesium Level 1.9 MG/DL Alkaline Phosphatase 72 U/L Aspartate Amino Transf (AST/SGOT) 25 U/L Alanine Aminotransferase (ALT/SGPT) 26 U/L Total Bilirubin 0.2 MG/DL Sodium Level 139 MEQ/L Potassium Level 3.5 MEQ/L Chloride Level 107 MEQ/L Carbon Dioxide Level 24.2 MEQ/L Anion Gap 8 MEQ/L Estimat Glomerular Filtration Rate 67 ML/MIN Total Creatine Kinase 140 U/L Creatine Kinase MB 1.2 NG/ML Troponin I LESS THAN 0.02 NG/ML B-Type Natriuretic Peptide 17 PG/ML Lipase 117 U/L Urine Color COLORLESS Urine Turbidity CLEAR Urine pH 5.0 Urine Specific [place] 1.002 Urine Protein NEG mg/dL Urine Glucose (UA) NEG mg/dL Urine Ketones NEG mg/dL Urine Occult Blood NEG Urine Nitrite NEG Urine Bilirubin NEG Urine Urobilinogen LESS THAN 2.0 MG/DL Urine Leukocyte Esterase NEG Urine RBC LESS THAN 1 /hpf Microscopic Urinalysis Comment CULT NOT INDICATED Urine Opiates Screen NEG Urine Barbiturates Screen NEG Urine Amphetamines Screen NEG Urine Benzodiazepines Screen NEG Urine Cocaine Screen POS Urine Cannabinoids Screen NEG Vital Signs Date Time Temp Pulse Resp B/P (MAP) Pulse Ox O2 Delivery O2 Flow Rate FiO2 02/23/17 12:50 86 24 98 Room Air 02/23/17 12:43 97.8 88 22 132/73 (92) 98 Room Air Differential Diagnosis Viral URI versus acute bronchitis versus ACS versus metabolic abnormality versus other Narrative Course Patient is a 41-year-old female presenting for evaluation of chest pain. Pain started several hours prior to arrival, patient did not call 911 because she reported utilizing it several times for anxiety attacks. She took a bus here, she appears well, her vital signs are stable. Chest pain is reproducible on palpation. Patient has no significant risk factors other than her weight. Labs and imaging ordered and pending, IV access established, patient placed on surveillance monitor and continuous pulse oximetry. Initial EKG shows normal sinus rhythm. CT of the brain was ordered due to headache, it was read by the radiologist and is negative. CXR shows no acute disease. Labs reviewed, no acute abnormalities noted. Cardiac enzymes are negative X 1 set. Urine drug screen is positive for cocaine. Due to cocaine use increasing risk for cardiac disease, patient will be placed in the chest pain center for further trending of enzymes and observation. Admit orders placed. Diagnosis Primary Impression: Chest pain Qualified Codes: R07.9 - Chest pain, unspecified Additional Impression: Substance abuse Admitting Information Admitting Physician Requests: Observation Condition: Stable Becca Grimaldo POLICY ADVISER Feb 23, 2017 13:06
[2017-02-23 13:28] LABS: AUTOMATED NEUTROPHIL # 4.4 TH/MM3 (1.8-7.7); BASOPHIL # 0.1 TH/MM3 (0-0.2); BASOPHIL % 1.2 % (0.0-2.0); EOSINOPHIL # 0.2 TH/MM3 (0-0.4); EOSINOPHIL % 3.2 % (0.0-4.0); HEMATOCRIT 35.2 % (35.0-46.0); HEMO FLAGS DIFF FINAL; LYMPH % 21.9 % (9.0-44.0); LYMPHOCYTE # 1.5 TH/MM3 (1.0-4.8); MEAN CELL VOLUME 92.5 FL (80.0-100.0); MEAN CORPUSCULAR HEMOGLOBIN 30.6 PG (27.0-34.0); MEAN CORPUSCULAR HGB CONC 33.1 % (32.0-36.0); MONO % 7.4 % (0.0-8.0); NEUT % 66.3 % (16.0-70.0); PLATELET COUNT 290 TH/MM3 (150-450); RED BLOOD COUNT 3.81 MIL/MM3 (4.00-5.30); RED CELL DISTRIBUTION WIDTH 14.7 % (11.6-17.2); WHITE BLOOD COUNT 6.7 TH/MM3 (4.0-11.0)
--- NOTE | 2017-02-23 13:33 | RADRPT ---
EXAM DATE/TIME: 02/23/2017 13:12 [facility] COMPARISON: CHEST SINGLE AP, November 06, 2015, 16:15. INDICATIONS : Chest pain. MEDICAL HISTORY : MRSA. Ovarian cancer and cysts. SURGICAL HISTORY : Hysterectomy. Appendectomy. Cholecystectomy. ENCOUNTER: Subsequent ACUITY: 2 days PAIN SCORE: 5/10 LOCATION: Bilateral chest FINDINGS: A single view of the chest demonstrates the lungs to be symmetrically aerated without evidence of mas s, infiltrate or effusion. The cardiomediastinal contours are unremarkable. Osseous structures are intact. CONCLUSION: The lungs are clear. Huey Sher MD on February 23, 2017 at 13:31 Board Certified Radiologist. This report was verified electronically.
[2017-02-23 13:35] LABS: PROTHROMBIN TIME - PATIENT 11.1 SEC (9.8-11.6)
[2017-02-23 13:38] VITALS: RESP 18; O2SAT 99
[2017-02-23 13:41] LABS: ALT (GPT) 26 U/L (10-53)
[2017-02-23 13:45] LABS: ALKALINE PHOSPHATASE 72 U/L (45-117); CREATINE KINASE 140 U/L (26-192); TOTAL BILIRUBIN ADULT 0.2 MG/DL (0.2-1.0)
[2017-02-23 13:46] LABS: ANION GAP 8 MEQ/L (5-15); AST (GOT) 25 U/L (15-37); BICARBONATE 24.2 MEQ/L (21.0-32.0); BLOOD UREA NITROGEN 6 MG/DL (7-18); CHLORIDE 107 MEQ/L (98-107); GLOMERULAR FILTRATION RATE 67 ML/MIN (>89); MAGNESIUM 1.9 MG/DL (1.5-2.5); POTASSIUM 3.5 MEQ/L (3.5-5.1); SODIUM (NA) 139 MEQ/L (136-145)
[2017-02-23 13:49] VITALS: BP_SYST 115; BP_SYST 122; BP_DIAS 67; BP_DIAS 70; PULSE 78
[2017-02-23 13:57] LABS: CKMB 1.2 NG/ML (0.5-3.6)
[2017-02-23 13:58] LABS: BLOOD, URINE NEG (NEG); GLUCOSE,URINE NEG (NEG); KETONE, URINE NEG (NEG); NITRITE,URINE NEG (NEG); URINE COLOR COLORLESS (YELLW/STRAW)
[2017-02-23 14:02] LABS: COMMENT (UR) CULT NOT INDICATED; CULTURE IF INDICATED CULT NOT INDICATED
--- NOTE | 2017-02-23 14:45 | RADRPT ---
EXAM DATE/TIME: 02/23/2017 14:21 [facility] COMPARISON: CT BRAIN W/O CONTRAST, November 06, 2015, 16:06. INDICATIONS : Sinus pressure and headache RADIATION DOSE: 32.40 CTDIvol (mGy) MEDICAL HISTORY : Cardiovascular disease. Seizures. SURGICAL HISTORY : Appendectomy. Cholecystectomy. ENCOUNTER: Initial ACUITY: 1 day PAIN SCALE: 5/10 LOCATION: cranial TECHNIQUE: Multiple contiguous axial images were obtained of the head. Using automated exposure control and adj ustment of the mA and/or kV according to patient size, radiation dose was kept as low as reasonably a chievable to obtain optimal diagnostic quality images. DICOM format image data is available electro nically for review and comparison. FINDINGS: CEREBRUM: The ventricles are normal for age. No evidence of midline shift, mass lesion, hemorrhage or acute in farction. No extra-axial fluid collections are seen. POSTERIOR FOSSA: The cerebellum and brainstem are intact. The 4th ventricle is midline. The cerebellopontine angle i s unremarkable. EXTRACRANIAL: The visualized portion of the orbits is intact. SKULL: The calvaria is intact. No evidence of skull fracture. CONCLUSION: Negative noncontrast CT brain. Huey Sher MD on February 23, 2017 at 14:42 Board Certified Radiologist. This report was verified electronically.
[2017-02-23] MEDS ORDERED: SODIUM CHLORIDE 0.9% FLUSH 5 ML FLUSH IVF PRN (16:00)
[2017-02-23] MEDS ORDERED: ALPRAZolam 0.25 MG TAB PO PRN (16:00)
[2017-02-23] MEDS ORDERED: ONDANSETRON HCL 4 MG/2 ML VIAL IV PUSH PRN (16:00)
[2017-02-23] MEDS ORDERED: ACETAMINOPHEN 500 MG CPLT PO PRN (16:00)
[2017-02-23] MEDS ORDERED: cloNIDine HCL 0.1 MG TAB PO PRN (16:00)
[2017-02-23] MEDS ORDERED: KETOROLAC TROMETHAMINE 30 MG/ML (IVP) VIAL IVP ONE (16:00)
--- NOTE | 2017-02-23 16:06 | HHI.HP ---
HPI Primary Care Physician No Primary Care Physician Chief Complaint Chest pain. History of Present Illness This is a 41 y/o female that presents to ED with complaint of left sided chest pressure that woke her at 0400 this AM. Lasted 1 hr but came back 3 more times lasting at most 20-30 minutes. No associated SOB, nausea, or diaphoresis. Found nothing to bring on the discomfort and nothing to help or worsen it.Denies hx of CAD. Cannot recall prior stress testing or cardiac cath. Hx of cocaine abuse , usually 2-3 x per month. Last time snorting cocaine was 2 days ago. Denies recent illness. Denies fevers or chills. Review of Systems Consitutional: DENIES: Fever, Chills HEENT: DENIES: Lightheadedness Respiratory: DENIES: Cough, Shortness of breath, Wheezing, Sputum production Cardiovascular: COMPLAINS OF: Chest pain, DENIES: Palpitations, Syncope, Tachycardia Gastrointestinal: DENIES: Nausea, Vomiting, Change in bowel habits, Reflux, Bloody stools, Melena Integumentary: DENIES: Rash Neurologic: DENIES: Tingling or numbness, Memory problems, Poor Balance, Stroke symptoms Musculoskeletal: DENIES: Joint pain, Muscle pain, Limited range of motion Psychiatric: DENIES: Anxiety, Depression, Sleep disturbances Hematologic: DENIES: Bruising tendencies Endocrine: DENIES: Weight gain, Weight loss, Thyroid disease Past Family Social History Allergies: Coded Allergies: Fish Containing Products (Unverified Allergy, Severe, Anaphylaxis, ) Pork/Porcine Containing Products (Unverified Allergy, Severe, Anaphylaxis , 02/13/17) cortisone (Unverified Allergy, Severe, PSYCHOSIS, 02/13/17) penicillin G (Unverified Allergy, Intermediate, RASH, 02/13/17) *MDRO Multi-Drug Resistant Organism (Verified Allergy, Unknown, 02/13/17) MRSA 2013 levofloxacin (Unverified Adverse Reaction, Mild, MUSCLE CRAMPING, 02/13/17 ) muscle cramping Uncoded Allergies: fish (Allergy, Severe, mouth swells up, 02/15/16) . ham (Allergy, Severe, mouth swells up, 02/15/16) .herlinda kennedy Past Medical History Denies HTN, HLD, DM, CAD. Hx of ovarian cancer with left oopherectomy 2013. Past Surgical History lt ovary secondary to ovarian cancer. Reported Medications Reported Meds & Active Scripts Active Reported Benadryl Extra Strength Topical (Diphenhydramine-Zinc Topical) 2-0.1% Cream 1 Applic TOPICAL QID PRN Active Ordered Medications Current Medications Medications (Trade) Dose Ordered Sig/Leidy Route Start Time Stop Time Status Last Admin (NS Flush) 2 ml UNSCH PRN IVF 02/23/17 13:00 (NS Flush) 2 ml UNSCH PRN IVF 02/23/17 16:00 UNV (NS Flush) 2 ml BID IVF 02/23/17 21:00 UNV (Tylenol) 500 mg Q4H PRN PO 02/23/17 16:00 UNV ([place] 7.5-325 Mg) 1 tab Q4H PRN PO 02/23/17 16:00 UNV (Zofran Inj) 4 mg Q6H PRN IV PUSH 02/23/17 16:00 UNV (Protonix) 40 mg DAILY PO 02/23/17 16:00 UNV (Aspirin) 325 mg DAILY PO 02/24/17 09:00 UNV (Xanax) 0.25 mg Q8H PRN PO 02/23/17 16:00 UNV (Toradol Inj) 30 mg ONCE ONCE IVP 02/23/17 16:00 02/23/17 16:01 UNV (Duoneb Neb) 1 ampule Q4HR NEB PRN INH 02/23/17 16:00 UNV (Catapres) 0.1 mg Q4H PRN PO 02/23/17 16:00 UNV Family History Denies family hx of CAD. Social History Admits to snorting cocaine 2-3 x per month. 2-3 beers per week. Last time was 2 days ago. Physical Exam Vital Signs Vital Signs Date Time Temp Pulse Resp B/P (MAP) Pulse Ox O2 Delivery O2 Flow Rate FiO2 02/23/17 13:49 78 115/67 (83) 122/70 (87) 02/23/17 13:38 18 99 Room Air 02/23/17 13:38 98 Room Air 02/23/17 12:50 86 24 98 Room Air 02/23/17 12:43 97.8 88 22 132/73 (92) 98 Room Air Physical Exam General: NAD. Speaks in clear and complete sentences. at the bedside. HEENT: Head atraumatic. Trachea is midline. No carotid bruits. No JVD. Cardiac: RRR without murmur, gallop, or rub. Respiratory: Lungs CTA bilaterally. No use of accessory muscles. Chest wall is tender reproducing the discomfort she had today. GI: Soft, nontender. Normal BS. Musk: Moving extremities freely. No calf tenderness or edema. No Beverly"s sign. Neuro: CN II-XII are intact. Speech is clear. No focal deficits. Skin: No rashes and turgor is normal. Laboratory Laboratory Tests Test 02/23/17 13:03 02/23/17 13:46 White Blood Count 6.7 Red Blood Count 3.81 Hemoglobin 11.7 Hematocrit 35.2 Mean Corpuscular Volume 92.5 Mean Corpuscular Hemoglobin 30.6 Mean Corpuscular Hemoglobin Concent 33.1 Red Cell Distribution Width 14.7 Platelet Count 290 Mean Platelet Volume 7.3 Neutrophils (%) (Auto) 66.3 Lymphocytes (%) (Auto) 21.9 Monocytes (%) (Auto) 7.4 Eosinophils (%) (Auto) 3.2 Basophils (%) (Auto) 1.2 Neutrophils # (Auto) 4.4 Lymphocytes # (Auto) 1.5 Monocytes # (Auto) 0.5 Eosinophils # (Auto) 0.2 Basophils # (Auto) 0.1 CBC Comment DIFF FINAL Differential Comment Prothrombin Time 11.1 Prothromb Time International Ratio 1.0 Activated Partial Thromboplast Time 26.0 Blood Urea Nitrogen 6 Creatinine 0.92 Random Glucose 93 Total Protein 7.8 Albumin 3.5 Calcium Level 8.9 Magnesium Level 1.9 Alkaline Phosphatase 72 Aspartate Amino Transf (AST/SGOT) 25 Alanine Aminotransferase (ALT/SGPT) 26 Total Bilirubin 0.2 Sodium Level 139 Potassium Level 3.5 Chloride Level 107 Carbon Dioxide Level 24.2 Anion Gap 8 Estimat Glomerular Filtration Rate 67 Total Creatine Kinase 140 Creatine Kinase MB 1.2 Troponin I LESS THAN 0.02 B-Type Natriuretic Peptide 17 Lipase 117 Urine Color COLORLESS Urine Turbidity CLEAR Urine pH 5.0 Urine Specific [place] 1.002 Urine Protein NEG Urine Glucose (UA) NEG Urine Ketones NEG Urine Occult Blood NEG Urine Nitrite NEG Urine Bilirubin NEG Urine Urobilinogen LESS THAN 2.0 Urine Leukocyte Esterase NEG Urine RBC LESS THAN 1 Microscopic Urinalysis Comment CULT NOT INDICATED Urine Opiates Screen NEG Urine Barbiturates Screen NEG Urine Amphetamines Screen NEG Urine Benzodiazepines Screen NEG Urine Cocaine Screen POS Urine Cannabinoids Screen NEG Result Diagram: 02/23/17 1303 02/23/17 1303 Imaging Last 48 hours Impressions Chest X-Ray 02/23/17 1300 Signed Impressions: Service Date/Time: February 13:12 - CONCLUSION: The lungs are clear. Huey Sher MD Head CT 02/23/17 0000 Signed Impressions: Service Date/Time: February 14:21 - CONCLUSION: Negative noncontrast CT brain. Huey Sher MD Course Initial EKG has SR without significant ST depressions or elevations. Caprini VTE Risk Assessment Caprini VTE Risk Assessment: No/Low Risk (score <= 1) Caprini Risk Assessment Model Point Value = 1 Point Value = 2 Point Value = 3 Point Value = 5 Age 41-60 Minor surgery BMI > 25 kg/m2 Swollen legs Varicose veins or History of unexplained or recurrent spontaneous Oral contraceptives or hormone replacement Sepsis (< 1 month) Serious lung disease, including pneumonia (< 1 month) Abnormal pulmonary function Acute myocardial infarction Congestive heart failure (< 1 month) History of inflammatory bowel disease Medical patient at bed rest Age 61-74 Arthroscopic surgery Major open surgery (> 45 min) Laparoscopic surgery (> 45 min) Malignancy Confined to bed (> 72 hours) Immobilizing plaster cast Central venous access Age >= 75 History of VTE Family history of VTE Factor V Leiden Prothrombin [id number] Lupus anticoagulant Anticardiolipin antibodies Elevated serum homocysteine Heparin-induced thrombocytopenia Other congenital or acquired thrombophilia Stroke (< 1 month) Elective arthroplasty Hip, pelvis, or leg fracture Acute spinal cord injury (< 1 month) Prophylaxis Regimen Total Risk Factor Score Risk Level Prophylaxis Regimen 0-1 Low Early ambulation 2 Moderate Order ONE of the following: *Sequential Compression Device (SCD) *Heparin 5000 units SQ BID 3-4 Higher Order ONE of the following medications: *Heparin 5000 units SQ TID *Enoxaparin/Lovenox 40 mg SQ daily (WT < 150 kg, CrCl > 30 mL/min) *Enoxaparin/Lovenox 30 mg SQ daily (WT < 150 kg, CrCl > 10-29 mL/min) *Enoxaparin/Lovenox 30 mg SQ BID (WT < 150 kg, CrCl > 30 mL/min) AND/OR *Sequential Compression Device (SCD) 5 or more Highest Order ONE of the following medications: *Heparin 5000 units SQ TID (Preferred with Epidurals) *Enoxaparin/Lovenox 40 mg SQ daily (WT < 150 kg, CrCl > 30 mL/min) *Enoxaparin/Lovenox 30 mg SQ daily (WT < 150 kg, CrCl > 10-29 mL/min) *Enoxaparin/Lovenox 30 mg SQ BID (WT < 150 kg, CrCl > 30 mL/min) AND *Sequential Compression Device (SCD) Assessment and Plan Assessment and Plan * Chest Pain: Patient will continue to have serial cardiac enzymes and EKG to rule out. Patient to have ETT if she rules out. She will be discharged after ETT if it is nonischemic. She will be given Toradol for the discomfort. Patient will need to follow up with PCP and return to ED for interval issues. * Cocaine use: Patient has been counseled on the importance of no longer using cocaine. Patient told her it could kill her. Patient is stable at this time and is agreeable to this plan. Se Nguyễn Feb 23, 2017 16:06
--- NOTE | 2017-02-23 16:19 | PD.CARD.PN ---
Subjective Subjective Remarks Pt discussed with PA and then seen and evaluated independently. History and evaluation is in agreement as is the physical exam. Course of evaluation discussed and will R/O with protocol. Objective Medications Current Medications Medications (Trade) Dose Ordered Sig/Leidy Route Start Time Stop Time Status Last Admin (NS Flush) 2 ml UNSCH PRN IVF 02/23/17 13:00 (NS Flush) 2 ml UNSCH PRN IVF 02/23/17 16:00 UNV (NS Flush) 2 ml BID IVF 02/23/17 21:00 UNV (Tylenol) 500 mg Q4H PRN PO 02/23/17 16:00 ([place] 7.5-325 Mg) 1 tab Q4H PRN PO 02/23/17 16:00 (Zofran Inj) 4 mg Q6H PRN IV PUSH 02/23/17 16:00 UNV (Protonix) 40 mg DAILY PO 02/23/17 16:00 UNV (Aspirin) 325 mg DAILY PO 02/24/17 09:00 (Xanax) 0.25 mg Q8H PRN PO 02/23/17 16:00 (Toradol Inj) 30 mg ONCE ONCE IVP 02/23/17 16:00 02/23/17 16:01 UNV (Duoneb Neb) 1 ampule Q4HR NEB PRN INH 02/23/17 16:00 UNV (Catapres) 0.1 mg Q4H PRN PO 02/23/17 16:00 Vital Signs / I&O Vital Signs Date Time Temp Pulse Resp B/P (MAP) Pulse Ox O2 Delivery O2 Flow Rate FiO2 02/23/17 13:49 78 115/67 (83) 122/70 (87) 02/23/17 13:38 18 99 Room Air 02/23/17 13:38 98 Room Air 02/23/17 12:50 86 24 98 Room Air 02/23/17 12:43 97.8 88 22 132/73 (92) 98 Room Air Laboratory Laboratory Tests Test 02/23/17 13:03 02/23/17 13:46 White Blood Count 6.7 TH/MM3 Red Blood Count 3.81 MIL/MM3 Hemoglobin 11.7 GM/DL Hematocrit 35.2 % Mean Corpuscular Volume 92.5 FL Mean Corpuscular Hemoglobin 30.6 PG Mean Corpuscular Hemoglobin Concent 33.1 % Red Cell Distribution Width 14.7 % Platelet Count 290 TH/MM3 Mean Platelet Volume 7.3 FL Neutrophils (%) (Auto) 66.3 % Lymphocytes (%) (Auto) 21.9 % Monocytes (%) (Auto) 7.4 % Eosinophils (%) (Auto) 3.2 % Basophils (%) (Auto) 1.2 % Neutrophils # (Auto) 4.4 TH/MM3 Lymphocytes # (Auto) 1.5 TH/MM3 Monocytes # (Auto) 0.5 TH/MM3 Eosinophils # (Auto) 0.2 TH/MM3 Basophils # (Auto) 0.1 TH/MM3 CBC Comment DIFF FINAL Differential Comment Prothrombin Time 11.1 SEC Prothromb Time International Ratio 1.0 RATIO Activated Partial Thromboplast Time 26.0 SEC Blood Urea Nitrogen 6 MG/DL Creatinine 0.92 MG/DL Random Glucose 93 MG/DL Total Protein 7.8 GM/DL Albumin 3.5 GM/DL Calcium Level 8.9 MG/DL Magnesium Level 1.9 MG/DL Alkaline Phosphatase 72 U/L Aspartate Amino Transf (AST/SGOT) 25 U/L Alanine Aminotransferase (ALT/SGPT) 26 U/L Total Bilirubin 0.2 MG/DL Sodium Level 139 MEQ/L Potassium Level 3.5 MEQ/L Chloride Level 107 MEQ/L Carbon Dioxide Level 24.2 MEQ/L Anion Gap 8 MEQ/L Estimat Glomerular Filtration Rate 67 ML/MIN Total Creatine Kinase 140 U/L Creatine Kinase MB 1.2 NG/ML Troponin I LESS THAN 0.02 NG/ML B-Type Natriuretic Peptide 17 PG/ML Lipase 117 U/L Urine Color COLORLESS Urine Turbidity CLEAR Urine pH 5.0 Urine Specific [place] 1.002 Urine Protein NEG mg/dL Urine Glucose (UA) NEG mg/dL Urine Ketones NEG mg/dL Urine Occult Blood NEG Urine Nitrite NEG Urine Bilirubin NEG Urine Urobilinogen LESS THAN 2.0 MG/DL Urine Leukocyte Esterase NEG Urine RBC LESS THAN 1 /hpf Microscopic Urinalysis Comment CULT NOT INDICATED Urine Opiates Screen NEG Urine Barbiturates Screen NEG Urine Amphetamines Screen NEG Urine Benzodiazepines Screen NEG Urine Cocaine Screen POS Urine Cannabinoids Screen NEG Imaging Last 24 hours Impressions Chest X-Ray 02/23/17 1300 Signed Impressions: Service Date/Time: February 13:12 - CONCLUSION: The lungs are clear. Huey Sher MD Head CT 02/23/17 0000 Signed Impressions: Service Date/Time: February 14:21 - CONCLUSION: Negative noncontrast CT brain. MD Shruti Oconnor Donald J. MD Feb 23, 2017 16:19
[2017-02-23 17:06] VITALS: O2SAT 97
[2017-02-23] MEDS: PANTOPRAZOLE SOD 40 MG DELAYED RELEASE TAB PO SCH (17:44)
[2017-02-23 17:53] VITALS: BP 135/75; PULSE 85; RESP 24; TEMP 98.2; O2SAT 98
[2017-02-23 18:20] LABS: CREATINE KINASE 105 U/L (26-192)
[2017-02-23 18:38] LABS: CKMB 1.4 NG/ML (0.5-3.6)
[2017-02-23] MEDS: RESP: ALBUTEROL 2.5 MG/IPRATROPIUM 0.5 MG NEB (PRN) INH (19:57)
[2017-02-23 20:00] VITALS: BP 132/67; PULSE 88; RESP 16; TEMP 98.2; O2SAT 97; O2SAT 98
[2017-02-23] MEDS: ACETAMINOPHEN/HYDROcodone 325 MG/7.5 MG TAB PO PRN (20:20)
[2017-02-23] MEDS: SODIUM CHLORIDE 0.9% FLUSH 10 ML FLUSH IVF PRN (20:20)
[2017-02-23] MEDS: SODIUM CHLORIDE 0.9% FLUSH 5 ML FLUSH IVF SCH (20:21)
[2017-02-23 21:14] LABS: CREATINE KINASE 93 U/L (26-192)
[2017-02-24 00:29] VITALS: BP 113/56; PULSE 86; RESP 17; TEMP 98.5; O2SAT 96
[2017-02-24] MEDS: ACETAMINOPHEN/HYDROcodone 325 MG/7.5 MG TAB PO PRN ×2 (00:32→12:24)
[2017-02-24 03:15] VITALS: BP 94/54; PULSE 67; RESP 16; TEMP 97.8; O2SAT 97
[2017-02-24 07:08] VITALS: BP 103/51; PULSE 72; RESP 20; TEMP 98.4; O2SAT 96
[2017-02-24 07:14] VITALS: O2SAT 95
[2017-02-24] MEDS ORDERED: ASPIRIN 325 MG TAB PO SCH (09:00)
[2017-02-24] MEDS: SODIUM CHLORIDE 0.9% FLUSH 5 ML FLUSH IVF SCH (09:00)
[2017-02-24] MEDS: PANTOPRAZOLE SOD 40 MG DELAYED RELEASE TAB PO SCH (09:17)
[2017-02-24] MEDS: SODIUM CHLORIDE 0.9% FLUSH 10 ML FLUSH IVF PRN ×2 (09:18→09:19)
--- NOTE | 2017-02-24 09:50 | PD.CARD.PN ---
Subjective Subjective Remarks Reports "I had a poor night." Would not elaborate on pain, not cooperative during assessment, keeping eyes closed. Requesting RN to bring her a pain pill, however does not stay why she needs pain pill. Objective Medications Current Medications Medications (Trade) Dose Ordered Sig/Leidy Route Start Time Stop Time Status Last Admin (NS Flush) 2 ml UNSCH PRN IVF 02/23/17 13:00 02/24/17 09:19 (NS Flush) 2 ml UNSCH PRN IVF 02/23/17 16:00 (NS Flush) 2 ml BID IVF 02/23/17 21:00 02/24/17 09:00 (Tylenol) 500 mg Q4H PRN PO 02/23/17 16:00 ([place] 7.5-325 Mg) 1 tab Q4H PRN PO 02/23/17 16:00 02/24/17 00:32 (Zofran Inj) 4 mg Q6H PRN IV PUSH 02/23/17 16:00 (Protonix) 40 mg DAILY PO 02/23/17 16:00 02/24/17 09:17 (Aspirin) 325 mg DAILY PO 02/24/17 09:00 02/24/17 09:17 (Xanax) 0.25 mg Q8H PRN PO 02/23/17 16:00 (Duoneb Neb) 1 ampule Q4HR NEB PRN INH 02/23/17 16:00 02/23/17 19:57 (Catapres) 0.1 mg Q4H PRN PO 02/23/17 16:00 Vital Signs / I&O Vital Signs Date Time Temp Pulse Resp B/P (MAP) Pulse Ox O2 Delivery O2 Flow Rate FiO2 02/24/17 07:14 95 21 02/24/17 07:08 98.4 72 20 103/51 (68) 96 02/24/17 03:15 97.8 67 16 94/54 (67) 97 02/24/17 01:31 18 02/24/17 00:29 98.5 86 17 113/56 (75) 96 02/23/17 20:00 98.2 88 16 132/67 (88) 98 02/23/17 20:00 97 21 02/23/17 17:53 98.2 85 24 135/75 (95) 98 02/23/17 17:06 97 21 02/23/17 13:49 78 115/67 (83) 122/70 (87) 02/23/17 13:38 18 99 Room Air 02/23/17 13:38 98 Room Air 02/23/17 12:50 86 24 98 Room Air 02/23/17 12:43 97.8 88 22 132/73 (92) 98 Room Air I/O 02/23/17 02/23/17 02/23/17 02/24/17 02/24/17 02/24/17 07:00 15:00 23:00 07:00 15:00 23:00 Intake Total 800 ml Balance 800 ml Intake Oral 300 ml IV Total 500 ml Physical Exam GENERAL: Alert WN, WD, NAD, uncooperative, obese, female in no acute distress. HEAD: NC, AT CV: RRR, without murmur, rub, gallop. RESP: Clear lungs throughout bilateral, no crackles, wheeze, rhonchi, symmetrical chest rise, nonlabored, able to speak in full sentences PSYCH: A+O 3, flat affect, appropriate speech, insight and judgment partial due to uncooperativeness. Laboratory Laboratory Tests Test 02/23/17 13:03 02/23/17 13:46 02/23/17 17:45 02/23/17 20:30 White Blood Count 6.7 TH/MM3 Red Blood Count 3.81 MIL/MM3 Hemoglobin 11.7 GM/DL Hematocrit 35.2 % Mean Corpuscular Volume 92.5 FL Mean Corpuscular Hemoglobin 30.6 PG Mean Corpuscular Hemoglobin Concent 33.1 % Red Cell Distribution Width 14.7 % Platelet Count 290 TH/MM3 Mean Platelet Volume 7.3 FL Neutrophils (%) (Auto) 66.3 % Lymphocytes (%) (Auto) 21.9 % Monocytes (%) (Auto) 7.4 % Eosinophils (%) (Auto) 3.2 % Basophils (%) (Auto) 1.2 % Neutrophils # (Auto) 4.4 TH/MM3 Lymphocytes # (Auto) 1.5 TH/MM3 Monocytes # (Auto) 0.5 TH/MM3 Eosinophils # (Auto) 0.2 TH/MM3 Basophils # (Auto) 0.1 TH/MM3 CBC Comment DIFF FINAL Differential Comment Prothrombin Time 11.1 SEC Prothromb Time International Ratio 1.0 RATIO Activated Partial Thromboplast Time 26.0 SEC Blood Urea Nitrogen 6 MG/DL Creatinine 0.92 MG/DL Random Glucose 93 MG/DL Total Protein 7.8 GM/DL Albumin 3.5 GM/DL Calcium Level 8.9 MG/DL Magnesium Level 1.9 MG/DL Alkaline Phosphatase 72 U/L Aspartate Amino Transf (AST/SGOT) 25 U/L Alanine Aminotransferase (ALT/SGPT) 26 U/L Total Bilirubin 0.2 MG/DL Sodium Level 139 MEQ/L Potassium Level 3.5 MEQ/L Chloride Level 107 MEQ/L Carbon Dioxide Level 24.2 MEQ/L Anion Gap 8 MEQ/L Estimat Glomerular Filtration Rate 67 ML/MIN Total Creatine Kinase 140 U/L 105 U/L 93 U/L Creatine Kinase MB 1.2 NG/ML 1.4 NG/ML Troponin I LESS THAN 0.02 NG/ML LESS THAN 0.02 NG/ML LESS THAN 0.02 NG/ML B-Type Natriuretic Peptide 17 PG/ML Lipase 117 U/L Urine Color COLORLESS Urine Turbidity CLEAR Urine pH 5.0 Urine Specific [place] 1.002 Urine Protein NEG mg/dL Urine Glucose (UA) NEG mg/dL Urine Ketones NEG mg/dL Urine Occult Blood NEG Urine Nitrite NEG Urine Bilirubin NEG Urine Urobilinogen LESS THAN 2.0 MG/DL Urine Leukocyte Esterase NEG Urine RBC LESS THAN 1 /hpf Microscopic Urinalysis Comment CULT NOT INDICATED Urine Opiates Screen NEG Urine Barbiturates Screen NEG Urine Amphetamines Screen NEG Urine Benzodiazepines Screen NEG Urine Cocaine Screen POS Urine Cannabinoids Screen NEG Imaging Last 24 hours Impressions Chest X-Ray 02/23/17 1300 Signed Impressions: Service Date/Time: February 13:12 - CONCLUSION: The lungs are clear. Huey Sher MD Assessment and Plan Assessment and Plan #1 Chest pain-ruled out with 3 sets of EKGs and cardiac enzymes. Patient agrees to plan exercise stress test this morning as previously planned. If unremarkable, plans discharge home with follow up with PCP Patient agreeable plan of care. #2 Cocaine use-reinforced importance of not using cocaine. Informed risks of cocaine use includes but not limited to [place] and . Maddy Velázquez [facility] Feb 24, 2017 09:50
--- NOTE | 2017-02-24 10:34 | EKG ---
Date Performed: 02/23/2017 Time Performed: 20:20:50 PTAGE: 41 years EKG: Sinus rhythm POOR R WAVE PROGRESSING IN THE ANTERIOR LEADS, POSSIBLE NORMAL VARIANT OR ANTERIOR MYOCARDIAL INFARC TION AGE UNDETERMINED ABNORMAL ECG PREVIOUS TRACING : 02/23/2017 18.02 DOCTOR: Roberto Bahena Interpretating Date/Time 02/24/2017 10:33:13
--- NOTE | 2017-02-24 10:36 | EKG ---
Date Performed: 02/23/2017 Time Performed: 18:02:06 PTAGE: 41 years EKG: Sinus rhythm NORMAL ECG NO SIG CHANGE PREVIOUS TRACING : 02/23/2017 12.54 DOCTOR: Roberto Bahena Interpretating Date/Time 02/24/2017 10:34:36
--- NOTE | 2017-02-24 10:37 | EKG ---
Date Performed: 02/23/2017 Time Performed: 12:54:18 PTAGE: 41 years EKG: Sinus rhythm NORMAL ECG NO CHANGE NO PREVIOUS TRACING DOCTOR: Roberto Bahena Interpretating Date/Time 02/24/2017 10:37:15
[2017-02-24] MEDS: RESP: ALBUTEROL 2.5 MG/IPRATROPIUM 0.5 MG NEB (PRN) INH (11:26)
[2017-02-24 12:16] VITALS: BP 135/63; PULSE 88; RESP 20; TEMP 96.9; O2SAT 95
[2017-02-24] MEDS ORDERED: REGADENOSON INJ 0.4 MG/5 ML SYR ONE (12:44)
--- NOTE | 2017-02-24 13:49 | RADRPT ---
EXAM DATE/TIME: 02/24/2017 12:43 [facility] COMPARISON: No previous studies available for comparison. INDICATIONS : Left sided chest pain for one day. Angina. DOSE: 25.4 mCi Tc99m Myoview at stress. 8.7 mCi Tc99m Myoview at rest. 0.4 mg Lexiscan STRESS SYMPTOMS: Neck pressure and left arm pain. EJECTION FRACTION: 55% MEDICAL HISTORY : Ovarian cancer. SURGICAL HISTORY : Left oopherectomy. ENCOUNTER: Initial ACUITY: 1 day PAIN SCALE: 7/10 LOCATION: Left chest TECHNIQUE: The patient underwent pharmacologic stress with infusion of prescribed dose. Continuous ECG tracing was monitored during stress. Gated SPECT imaging was performed after stress and conventional SPECT i maging was performed at rest. The examination was performed on a SPECT/CT scanner, both attenuation and non-corrected datasets were reviewed. FINDINGS: DISTRIBUTION: The maximum perfused segment at stress is in the <mid anterolateral> wall. On the rest images the max imum perfusion is to the posterior lateral wall more superiorly. There is some difficulty normalizing the point of maximum perfusion between stress and rest PERFUSION STUDY: The stress images show decreased perfusion throughout the LAD distribution. For the most part is stab le except along the anterior and anterolateral shukla both mid and distally. GATED STUDY: There is intact wall motion and thickening without hypokinetic or dyskinetic segments. CONCLUSION: There is some difficulty normalizing the point of maximum perfusion between stress and rest. There is however clearly better perfusion at rest in the anterior wall and anterolateral wall there is at res t. despite the normal ejection fraction and the patient's young age, it is difficult to rule out isc hemia in the LAD distribution. RISK CATEGORY: Intermediate (1-3% Annual Mortality Rate) Mukesh Shirley MD on February 24, 2017 at 13:44 Board Certified Radiologist. This report was verified electronically.
--- NOTE | 2017-02-24 14:50 | HHI.DS ---
Discharge Summary Admission Date Feb 23, 2017 at 15:17 Discharge Date: Feb 24, 2017 Admitting Diagnosis chest pain, cocaine use (1) Atypical chest pain Diagnosis: Principal ICD Codes: R07.89 - Other chest pain Status: Resolved (2) Substance abuse Diagnosis: Secondary ICD Codes: F19.10 - Other psychoactive substance abuse, uncomplicated Status: Chronic Procedures Last Impressions Myocardial Perfusion Scan Nuc Med 02/24/17 0000 Signed Impressions: Service Date/Time: Friday, February 24, 2017 12:43 - CONCLUSION: There is some difficulty normalizing the point of maximum perfusion between stress and rest. There is however clearly better perfusion at rest in the anterior wall and anterolateral wall there is at rest. despite the normal ejection fraction and the patient's young age, it is difficult to rule out ischemia in the LAD distribution. RISK CATEGORY: Intermediate (1-3%% Annual Mortality Rate) Mukesh Shirley MD Chest X-Ray 02/23/17 1300 Signed Impressions: Service Date/Time: February 13:12 - CONCLUSION: The lungs are clear. Huey Sher MD Head CT 02/23/17 0000 Signed Impressions: Service Date/Time: February 14:21 - CONCLUSION: Negative noncontrast CT brain. Huey Sher MD Brief History 41-year-old female presents emergency room for further evaluation of intermittent chest pain 2 days. The chest pain center. Ruled out with 3 sets of EKGs, cardiac enzymes, and seen and evaluated by Dr. Roberto Bahena. Plan was to complete exercise stress test however patient stated she was unable to walk on treadmill therefore chemical stress test was completed. Lexiscan conclusion discussed with Dr. Bahena, who feels stress test most likely a negative exam. Dr. Bahena requested to call on-call physician to discuss. Dr. Mukesh Rousseau, professional programmer analyst physician, returned call. Discussed patient case and Lexiscan results. Dr. Rousseau reviewed Lexiscan images and also feels stress test most likely negative. Dr. Rousseau happy to see patient if Dr. Bahena would like cardiology to get involved. Dr. Bahena notified Dr. Rousseau reviewed images, therefore Dr. Bahena okays discharge. CBC/BMP: 02/23/17 1303 02/23/17 1303 Significant Findings Laboratory Tests Test 02/23/17 13:03 02/23/17 13:46 02/23/17 17:45 02/23/17 20:30 Red Blood Count 3.81 MIL/MM3 (4.00-5.30) Blood Urea Nitrogen 6 MG/DL (7-18) Estimat Glomerular Filtration Rate 67 ML/MIN (>89) Troponin I LESS THAN 0.02 NG/ML LESS THAN 0.02 NG/ML LESS THAN 0.02 NG/ML Urine Cocaine Screen POS (NEG) Pt Condition on Discharge: Good Discharge Disposition: Discharge Home Discharge Instructions DIET: Follow Instructions for: Heart Healthy Diet Speech Therapy-Diet Recommenda: Regular Activities you can perform: Regular-No Restrictions Maddy Velázquez Feb 24, 2017 14:50
--- NOTE | 2017-02-24 14:59 | PD.CARD.PN ---
Subjective Subjective Remarks Pt discussed with PA and then seen and evaluated independently. History and evaluation is in agreement as is the physical exam. Course of evaluation discussed and will R/O with protocol. Objective Medications Current Medications Medications (Trade) Dose Ordered Sig/Leidy Route Start Time Stop Time Status Last Admin (NS Flush) 2 ml UNSCH PRN IVF 02/23/17 13:00 02/24/17 09:19 (NS Flush) 2 ml UNSCH PRN IVF 02/23/17 16:00 (NS Flush) 2 ml BID IVF 02/23/17 21:00 02/24/17 09:00 (Tylenol) 500 mg Q4H PRN PO 02/23/17 16:00 ([place] 7.5-325 Mg) 1 tab Q4H PRN PO 02/23/17 16:00 02/24/17 12:24 (Zofran Inj) 4 mg Q6H PRN IV PUSH 02/23/17 16:00 (Protonix) 40 mg DAILY PO 02/23/17 16:00 02/24/17 09:17 (Aspirin) 325 mg DAILY PO 02/24/17 09:00 02/24/17 09:17 (Xanax) 0.25 mg Q8H PRN PO 02/23/17 16:00 (Duoneb Neb) 1 ampule Q4HR NEB PRN INH 02/23/17 16:00 02/24/17 11:26 (Catapres) 0.1 mg Q4H PRN PO 02/23/17 16:00 Vital Signs / I&O Vital Signs Date Time Temp Pulse Resp B/P (MAP) Pulse Ox O2 Delivery O2 Flow Rate FiO2 02/24/17 12:16 96.9 88 20 135/63 (87) 95 02/24/17 07:14 95 21 02/24/17 07:08 98.4 72 20 103/51 (68) 96 02/24/17 03:15 97.8 67 16 94/54 (67) 97 02/24/17 01:31 18 02/24/17 00:29 98.5 86 17 113/56 (75) 96 02/23/17 20:00 98.2 88 16 132/67 (88) 98 02/23/17 20:00 97 21 02/23/17 17:53 98.2 85 24 135/75 (95) 98 02/23/17 17:06 97 21 I/O 02/23/17 02/23/17 02/23/17 02/24/17 02/24/17 02/24/17 07:00 15:00 23:00 07:00 15:00 23:00 Intake Total 800 ml Balance 800 ml Intake Oral 300 ml IV Total 500 ml Laboratory Laboratory Tests Test 02/23/17 17:45 02/23/17 20:30 Total Creatine Kinase 105 U/L 93 U/L Creatine Kinase MB 1.4 NG/ML Troponin I LESS THAN 0.02 NG/ML LESS THAN 0.02 NG/ML Imaging Last 24 hours Impressions Myocardial Perfusion Scan Nuc Med 02/24/17 0000 Signed Impressions: Service Date/Time: Friday, February 24, 2017 12:43 - CONCLUSION: There is some difficulty normalizing the point of maximum perfusion between stress and rest. There is however clearly better perfusion at rest in the anterior wall and anterolateral wall there is at rest. despite the normal ejection fraction and the patient's young age, it is difficult to rule out ischemia in the LAD distribution. RISK CATEGORY: Intermediate (1-3%% Annual Mortality Rate) Mukesh Shirley MD Assessment and Plan Assessment and Plan After evaluation with protocol it was found there was a low probability that the current problems are cardiac in origin. Discharge to FU as OP with own PCP or clinic. Discussed Condition With EMERGENCY TELECOMMUNICATIONS DISPATCHER Roberto Bahena MD Feb 24, 2017 14:59
[2017-02-24 15:42] VITALS: BP 120/65; PULSE 72; RESP 18; TEMP 97.1; O2SAT 90
--- NOTE | 2017-02-24 16:36 | TR ---
Date Performed: 02/24/2017 Time Performed: 13:02:30 DOCTOR: Roberto Bahena DRUG LIST: CLINICAL HISTORY: CHEST PAIN REASON FOR TEST: CHEST PAIN REASON FOR ENDING: OBSERVATION: CONCLUSION: Lexiscan stress test was performed under standard four minute protocol. Radionuclide was injected one minute prior to ending the test. No electrocardiographic abormalities were present to suggest ischemia. Nuclear imaging and interpretation are pending. COMMENTS:
== END 2017-02-24 17:07 | disposition home or self-care (01) ==
LOC: NEPC 12:41 → NEDA 15:17 → NEPGCP 17:26
PROVIDERS: ADMIT Internal Medicine Cardiovascular Disease; ATTEND Internal Medicine Cardiovascular Disease
DX: R07.9 Chest pain, unspecified (principal); F19.10 Other psychoactive substance abuse, uncomplicated; F14.90 Cocaine use, unspecified, uncomplicated; R94.31 Abnormal electrocardiogram [ECG] [EKG]; Z85.43 Personal history of malignant neoplasm of ovary
CPT/HCPCS: 70450; 71010; 78452; 80053; 80307; 81001; 82550; 82552; 83690; 83735; 83880; 84484; 84703; 85025; 85610; 85730; 93005; 93017; 94640; 94664; 96361; 96374; 99285; A9502; G0378; J1885; J2785; J7040